=== PATIENT | male | born 1955 | race Caucasian/White ===

== ENCOUNTER → 2024-12-12 | Outpatient (CLI) | payer OTHER, SELFPAY ==
[2024-12-12 10:04] LABS: Collection Type, Urine Clean Catch; Squamous Epithelial Cell,Urine 0 /hpf (0-5)
[2024-12-12 10:33] LABS: Basophils # (Auto) 0.1 Thou/mm3 (0.0-0.2); Basophils % (Auto) 1 % (0-2.5); Eosinophils # (Auto) 0.2 Thou/mm3 (0.0-0.5); Eosinophils % (Auto) 3 % (0-10); Hematocrit 42.7 % (41.0-53.0); Hemoglobin 14.6 g/dL (13.5-16.0); Immature Granulocytes % (Auto) 1 % (0-0); Immature Granulocytes Auto 0.07 Thou/mm3 (0.00-0.00); Lymphocytes % (Auto) 31 % (10-50); Mean Corpuscular HGB Conc 34.2 g/dl (31.0-37.0); Mean Corpuscular Hemoglobin 31.7 pg (25.0-35.0); Mean Corpuscular Volume 93 fL (80-100); Monocytes # (Auto) 0.5 Thou/mm3 (0.0-0.8); Monocytes % (Auto) 7 % (0-12); Neutrophils # (Auto) 3.7 Thou/mm3 (1.8-7.7); Neutrophils % (Auto) 58 % (37-80); Nucleated Red Blood Cell % 0 /100 WBC (0); Platelet Count 162 Thou/mm3 (140-440); Red Blood Count 4.61 Miln/mm3 (4.50-5.90); White Blood Count 6.4 Thou/mm3 (3.8-10.6)
[2024-12-12 10:39] LABS: Glucose Estimated Average 137 mg/dL (80-131); Hemoglobin A1C 6.4 % Hgb (4.8-6.0)
[2024-12-12 10:50] LABS: Alanine Aminotransferase 28 U/L (10-49); Albumin, Serum 4.4 gm/dL (3.4-4.8); Albumin/Globulin Ratio 1.4 (1.2-2.2); Alkaline Phosphatase 60 U/L (46-116); Anion Gap 9 (7-16); Aspartate Amino Transferase 56 U/L (0-34); BUN/Creatinine Ratio 8 Ratio (12-20); Bilirubin,Total 0.4 mg/dL (0.3-1.2); Blood Urea Nitrogen 10 mg/dL (9-23); Calcium 9.1 mg/dL (8.3-10.6); Calcium (Corrected) 9.1 mg/dL (8.5-10.1); Carbon Dioxide 26.4 mMol/L (20.0-31.0); Cardiac Risk Estimate 8.1 RATIO (4.0-6.7); Chloride 105 mMol/L (98-107); Cholesterol 356 mg/dL (132-200); Creatinine (Component) 1.3 mg/dL (0.6-1.3); Globulin 3.1 gm/dL (2.3-3.5); Glucose 106 mg/dL (74-106); HDL Cholesterol 44 mg/dL (40-60); LDL Cholesterol,Calculated 258 mg/dL (0-130); Osmolality,Calculated 278 (275-295); Potassium 3.9 mMol/L (3.4-5.1); Sodium 140 mMol/L (136-145); Thyroid Stimulating Hormone > 150.00 uIU/mL (0.55-4.78); Total Protein 7.5 gm/dL (5.7-8.2); Triglycerides 271 mg/dL (30-150); eGFR > 60 See Note
[2024-12-12 10:56] LABS: Bilirubin,Urine Negative (Negative); Blood,Urine Negative (Negative); Clarity,Urine Clear (Clear/Hazy); Color,Urine Colorless (Lt Yel-Yel); Glucose, Urine Negative (Negative); Ketones,Urine Negative (Negative); Leukocyte Esterase,Urine Negative (Negative); Nitrite,Urine Negative (Negative); PH,Urine 6.5 (5.0-7.0); Protein,Urine Negative (Neg - Trace); RBC,Urine 2 /hpf (0-3); Specific Gravity,Urine 1.007 (1.001-1.035); Urobilinogen,Urine Negative mg/dL (0.0-1.0); WBC,Urine < 1 /hpf (0-5)
== END | disposition home or self-care (01) ==
LOC: COPL 09:17
PROVIDERS: PCP Family Medicine; Referring Provider Family Medicine; Visit Provider Family Medicine
DX: Z00.00 Encounter for general adult medical examination without abnormal findings (principal); E78.2 Mixed hyperlipidemia; E03.9 Hypothyroidism, unspecified
CPT/HCPCS: 36415; 80053; 80061; 81001; 83036; 84443; 85025

== ENCOUNTER 2025-02-15 16:16 | Emergency (ER) | payer OTHER, MEDICAID, SELFPAY ==
[2025-02-15 16:25] VITALS: BP 133/85; PULSE 74; RESP 20; TEMP 36.7; O2SAT 95; BMI 25.2
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
[2025-02-15 16:54] LABS: Basophils # (Auto) 0.1 Thou/mm3 (0.0-0.2); Basophils % (Auto) 1 % (0-2.5); Eosinophils # (Auto) 0.2 Thou/mm3 (0.0-0.5); Eosinophils % (Auto) 2 % (0-10); Hematocrit 42.4 % (41.0-53.0); Hemoglobin 14.5 g/dL (13.5-16.0); Immature Granulocytes Auto 0.06 Thou/mm3 (0.00-0.00); Lymphocytes # (Auto) 1.6 Thou/mm3 (1.0-4.8); Lymphocytes % (Auto) 18 % (10-50); Mean Corpuscular HGB Conc 34.2 g/dl (31.0-37.0); Mean Corpuscular Hemoglobin 31.8 pg (25.0-35.0); Mean Corpuscular Volume 93 fL (80-100); Monocytes # (Auto) 0.7 Thou/mm3 (0.0-0.8); Monocytes % (Auto) 7 % (0-12); Neutrophils # (Auto) 6.8 Thou/mm3 (1.8-7.7); Neutrophils % (Auto) 73 % (37-80); Nucleated Red Blood Cell # 0.00 Thou/mm3 (0.00-0.00); Nucleated Red Blood Cell % 0 /100 WBC (0); Platelet Count 247 Thou/mm3 (140-440); RDW Standard Deviation 44.6 fL (35.1-43.9); Red Blood Count 4.56 Miln/mm3 (4.50-5.90); White Blood Count 9.4 Thou/mm3 (3.8-10.6)
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
[2025-02-15 17:24] LABS: Alanine Aminotransferase 9 U/L (10-49); Albumin, Serum 4.6 gm/dL (3.4-4.8); Albumin/Globulin Ratio 1.4 (1.2-2.2); Alkaline Phosphatase 84 U/L (46-116); Anion Gap 8 (7-16); Aspartate Amino Transferase 17 U/L (0-34); BUN/Creatinine Ratio 11 Ratio (12-20); Bilirubin,Total 0.6 mg/dL (0.3-1.2); Blood Urea Nitrogen 12 mg/dL (9-23); Calcium 9.5 mg/dL (8.3-10.6); Calcium (Corrected) 9.5 mg/dL (8.5-10.1); Carbon Dioxide 26.1 mMol/L (20.0-31.0); Chloride 106 mMol/L (98-107); Creatinine (Component) 1.1 mg/dL (0.6-1.3); Estimated Creatinine Clearance 58.8 mL/min (>60); Globulin 3.4 gm/dL (2.3-3.5); Glucose 98 mg/dL (74-106); Lipase 34 U/L (12-53); Osmolality,Calculated 279 (275-295); Potassium 4.3 mMol/L (3.4-5.1); Sodium 140 mMol/L (136-145); Total Protein 8.0 gm/dL (5.7-8.2); eGFR > 60 See Note
[2025-02-15] MEDS: MAGNESIUM CITRATE 300 ML BTL PO (18:28)
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
[2025-02-15 18:42] VITALS: BP 161/90; PULSE 55; RESP 16; TEMP 36.6; O2SAT 95
[2025-02-15 19:34] VITALS: BP 140/93; PULSE 61; RESP 23; TEMP 36.6; O2SAT 94
[2025-02-15 20:15] VITALS: BP 125/89; PULSE 60; RESP 17; TEMP 36.8; O2SAT 95
[2025-02-15 20:30] LABS: Collection Type, Urine Clean Catch; Squamous Epithelial Cell,Urine 0 /hpf (0-5)
[2025-02-15 20:37] LABS: Bilirubin,Urine Negative (Negative); Blood,Urine Negative (Negative); Clarity,Urine Clear (Clear/Hazy); Color,Urine Lt-Yellow (Lt Yel-Yel); Culture Indicated,Urine Not Indicated; Glucose, Urine Negative (Negative); Ketones,Urine Negative (Negative); Leukocyte Esterase,Urine Negative (Negative); Nitrite,Urine Negative (Negative); PH,Urine 6.5 (5.0-7.0); Protein,Urine Negative (Neg - Trace); RBC,Urine 2 /hpf (0-3); Specific Gravity,Urine 1.043 (1.001-1.035); Urobilinogen,Urine Negative mg/dL (0.0-1.0); WBC,Urine 1 /hpf (0-5)
--- NOTE | 2025-02-15 20:44 | PC.NURSE ---
PT REFUSED THE ENEMA. PT WAS EDUCATED ON THE PURPOSE OF EDEMA. PROVIDER WAS NOTFIED ON REFUSAL
[2025-02-15 21:05] VITALS: BP 125/89; PULSE 65; RESP 21; TEMP 36.7; O2SAT 94
== END 2025-02-15 21:05 | disposition home or self-care (01) ==
PROVIDERS: Nurse Practitioner Primary Care; Emergency Provider Emergency Medicine; PCP Family Medicine
DX: K59.00 Constipation, unspecified (principal); I71.20 Thoracic aortic aneurysm, without rupture, unspecified; I71.40 Abdominal aortic aneurysm, without rupture, unspecified; K57.30 Diverticulosis of large intestine without perforation or abscess without bleeding
CPT/HCPCS: 36415; 74177; 80053; 81001; 83690; 85025; 99283; A4649; Q9967; A9270

== ENCOUNTER 2025-02-21 10:51 | Emergency (ER) | payer OTHER, MEDICAID, SELFPAY ==
[2025-02-21 11:04] VITALS: BP 155/91; PULSE 71; RESP 18; TEMP 36.9; O2SAT 98; BMI 24.2
--- NOTE | 2025-02-21 11:12 | EKG_ITS ---
[facility] Test Date: 2025-02-21 Pat Name: DHEERAJ RIVER Department: Room: - Gender: Male Director Of Development: : 1955 Requested By: Dheeraj Penn (LIZ) Order Number: [id number] Reading MD: Dheeraj Penn (CONTENT COORDINATOR) Measurements Intervals [place] Rate: 62 P: 73 CT: 160 QRS: 205 QRSD: 112 T: 81 QT: 425 QTc: 433 Interpretive Statements SINUS RHYTHM INDETERMINATE AXIS LOW QRS VOLTAGE IN EXTREMITY LEADS [QRS DEFLECTION < 0.5 mV IN LIMB LEADS] INFERIOR MYOCARDIAL INFARCTION , OF INDETERMINATE AGE [40+ ms Q WAVE AND/OR ST/T ABNORMALITY IN II/aVF] No previous ECG available for comparison /[id number]/[id number]
[2025-02-21 11:24] VITALS: PULSE 66
[2025-02-21 11:28] LABS: Basophils # (Auto) 0.0 Thou/mm3 (0.0-0.2); Basophils % (Auto) 0 % (0-2.5); Eosinophils # (Auto) 0.1 Thou/mm3 (0.0-0.5); Eosinophils % (Auto) 1 % (0-10); Hematocrit 43.0 % (41.0-53.0); Hemoglobin 14.6 g/dL (13.5-16.0); Immature Granulocytes Auto 0.03 Thou/mm3 (0.00-0.00); Lymphocytes # (Auto) 1.5 Thou/mm3 (1.0-4.8); Lymphocytes % (Auto) 20 % (10-50); Mean Corpuscular HGB Conc 34.0 g/dl (31.0-37.0); Mean Corpuscular Hemoglobin 31.2 pg (25.0-35.0); Mean Corpuscular Volume 92 fL (80-100); Monocytes # (Auto) 0.6 Thou/mm3 (0.0-0.8); Monocytes % (Auto) 8 % (0-12); Neutrophils # (Auto) 5.4 Thou/mm3 (1.8-7.7); Neutrophils % (Auto) 70 % (37-80); Nucleated Red Blood Cell # 0.00 Thou/mm3 (0.00-0.00); Nucleated Red Blood Cell % 0 /100 WBC (0); Platelet Count 233 Thou/mm3 (140-440); RDW Standard Deviation 44.6 fL (35.1-43.9); Red Blood Count 4.68 Miln/mm3 (4.50-5.90); White Blood Count 7.7 Thou/mm3 (3.8-10.6)
[2025-02-21 11:44] LABS: INR 1.0 (0.9-1.3); Partial Thromboplastin Time 28.4 Seconds (22.0-36.0); Prothrombin Time 11.2 Seconds (9.0-12.2)
[2025-02-21 12:02] LABS: Alanine Aminotransferase 8 U/L (10-49); Albumin, Serum 4.5 gm/dL (3.4-4.8); Albumin/Globulin Ratio 1.4 (1.2-2.2); Alkaline Phosphatase 82 U/L (46-116); Anion Gap 11 (7-16); Aspartate Amino Transferase 17 U/L (0-34); BUN/Creatinine Ratio 11 Ratio (12-20); Bilirubin,Total 0.8 mg/dL (0.3-1.2); Blood Urea Nitrogen 11 mg/dL (9-23); Calcium 9.5 mg/dL (8.3-10.6); Calcium (Corrected) 9.5 mg/dL (8.5-10.1); Carbon Dioxide 23.1 mMol/L (20.0-31.0); Chloride 106 mMol/L (98-107); Creatinine (Component) 1.0 mg/dL (0.6-1.3); Estimated Creatinine Clearance 64.7 mL/min (>60); Globulin 3.3 gm/dL (2.3-3.5); Glucose 86 mg/dL (74-106); Lipase 23 U/L (12-53); Magnesium 1.4 mg/dL (1.6-2.6); Osmolality,Calculated 277 (275-295); Potassium 3.9 mMol/L (3.4-5.1); Sodium 140 mMol/L (136-145); Total Protein 7.8 gm/dL (5.7-8.2); Troponin I < 0.020 ng/mL (0.0-0.045); eGFR > 60 See Note
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
[2025-02-21] MEDS: MORPHINE SULF INJ 10 MG/ML VIAL 4 MG IVP (13:00)
[2025-02-21] MEDS: Magnesium Sulfate 2 GM Ivpb 2 GM/50 ML BAG IV (13:01)
[2025-02-21 15:11] VITALS: PULSE 61; RESP 18; TEMP 37; O2SAT 95
== END 2025-02-21 15:54 | disposition home or self-care (01) ==
PROVIDERS: Nurse Practitioner Primary Care; Emergency Provider Student in an Organized Health Care Education/Training Program; PCP Family Medicine
DX: R10.9 Unspecified abdominal pain (principal); I25.2 Old myocardial infarction
CPT/HCPCS: 36415; 80053; 80307; 81001; 83690; 83735; 84484; 85025; 85610; 85730; 93005; 96365; 96366; 96375; 99283; J2270; J3475

== ENCOUNTER 2025-02-25 07:41 | Emergency (ER) | payer OTHER, MEDICAID, SELFPAY ==
[2025-02-25 07:42] VITALS: BMI 25.2
[2025-02-25 08:03] VITALS: BP 143/75; PULSE 68; RESP 18; TEMP 36.9; O2SAT 99
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
[2025-02-25] MEDS: HYDROcodone/APAP 5/325 TABLET 1 TAB PO (08:36)
[2025-02-25 08:39] LABS: Basophils # (Auto) 0.0 Thou/mm3 (0.0-0.2); Basophils % (Auto) 1 % (0-2.5); Eosinophils # (Auto) 0.1 Thou/mm3 (0.0-0.5); Eosinophils % (Auto) 2 % (0-10); Hematocrit 45.5 % (41.0-53.0); Hemoglobin 14.7 g/dL (13.5-16.0); Immature Granulocytes Auto 0.02 Thou/mm3 (0.00-0.00); Lymphocytes # (Auto) 1.4 Thou/mm3 (1.0-4.8); Lymphocytes % (Auto) 21 % (10-50); Mean Corpuscular HGB Conc 32.3 g/dl (31.0-37.0); Mean Corpuscular Hemoglobin 31.3 pg (25.0-35.0); Mean Corpuscular Volume 97 fL (80-100); Monocytes # (Auto) 0.6 Thou/mm3 (0.0-0.8); Monocytes % (Auto) 8 % (0-12); Neutrophils # (Auto) 4.6 Thou/mm3 (1.8-7.7); Neutrophils % (Auto) 68 % (37-80); Nucleated Red Blood Cell # 0.00 Thou/mm3 (0.00-0.00); Nucleated Red Blood Cell % 0 /100 WBC (0); Platelet Count 237 Thou/mm3 (140-440); RDW Standard Deviation 46.3 fL (35.1-43.9); Red Blood Count 4.69 Miln/mm3 (4.50-5.90); White Blood Count 6.7 Thou/mm3 (3.8-10.6)
[2025-02-25 09:40] LABS: Alanine Aminotransferase 9 U/L (10-49); Albumin, Serum 4.5 gm/dL (3.4-4.8); Albumin/Globulin Ratio 1.4 (1.2-2.2); Alkaline Phosphatase 76 U/L (46-116); Anion Gap 9 (7-16); Aspartate Amino Transferase 17 U/L (0-34); BUN/Creatinine Ratio 11 Ratio (12-20); Bilirubin,Total 0.3 mg/dL (0.3-1.2); Blood Urea Nitrogen 11 mg/dL (9-23); Calcium 9.9 mg/dL (8.3-10.6); Calcium (Corrected) 9.9 mg/dL (8.5-10.1); Carbon Dioxide 26.8 mMol/L (20.0-31.0); Chloride 106 mMol/L (98-107); Creatinine (Component) 1.0 mg/dL (0.6-1.3); Estimated Creatinine Clearance 64.7 mL/min (>60); Globulin 3.3 gm/dL (2.3-3.5); Glucose 103 mg/dL (74-106); Lipase 25 U/L (12-53); Osmolality,Calculated 282 (275-295); Potassium 3.9 mMol/L (3.4-5.1); Sodium 142 mMol/L (136-145); Total Protein 7.8 gm/dL (5.7-8.2); eGFR > 60 See Note
[2025-02-25 09:49] LABS: Magnesium 1.4 mg/dL (1.6-2.6)
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
[2025-02-25 11:03] VITALS: BP 140/85; PULSE 55; RESP 18; TEMP 36.8; O2SAT 96
== END 2025-02-25 11:28 | disposition home or self-care (01) ==
PROVIDERS: Nurse Practitioner Family; Emergency Provider Emergency Medicine; PCP Family Medicine
DX: R10.32 Left lower quadrant pain (principal); K59.00 Constipation, unspecified; N28.1 Cyst of kidney, acquired; I71.40 Abdominal aortic aneurysm, without rupture, unspecified
CPT/HCPCS: 36415; 74177; 80053; 81001; 83690; 83735; 85025; 87086; 99283; A4649; Q9967; A9270

== ENCOUNTER → 2025-03-20 | Outpatient (CLI) | payer OTHER, MEDICAID, SELFPAY ==
[2025-03-20 09:25] LABS: Basophils # (Auto) 0.0 Thou/mm3 (0.0-0.2); Basophils % (Auto) 1 % (0-2.5); Eosinophils # (Auto) 0.2 Thou/mm3 (0.0-0.5); Eosinophils % (Auto) 3 % (0-10); Hematocrit 45.1 % (41.0-53.0); Hemoglobin 14.7 g/dL (13.5-16.0); Immature Granulocytes Auto 0.05 Thou/mm3 (0.00-0.00); Lymphocytes # (Auto) 1.6 Thou/mm3 (1.0-4.8); Lymphocytes % (Auto) 24 % (10-50); Mean Corpuscular HGB Conc 32.6 g/dl (31.0-37.0); Mean Corpuscular Hemoglobin 31.0 pg (25.0-35.0); Mean Corpuscular Volume 95 fL (80-100); Monocytes # (Auto) 0.6 Thou/mm3 (0.0-0.8); Monocytes % (Auto) 9 % (0-12); Neutrophils # (Auto) 4.3 Thou/mm3 (1.8-7.7); Neutrophils % (Auto) 64 % (37-80); Nucleated Red Blood Cell # 0.00 Thou/mm3 (0.00-0.00); Nucleated Red Blood Cell % 0 /100 WBC (0); Platelet Count 259 Thou/mm3 (140-440); RDW Standard Deviation 45.5 fL (35.1-43.9); Red Blood Count 4.74 Miln/mm3 (4.50-5.90); White Blood Count 6.8 Thou/mm3 (3.8-10.6)
[2025-03-20 09:31] LABS: Glucose Estimated Average 128 mg/dL (80-131); Hemoglobin A1C 6.1 % Hgb (4.8-6.0)
[2025-03-20 10:11] LABS: Alanine Aminotransferase 10 U/L (10-49); Albumin, Serum 4.4 gm/dL (3.4-4.8); Albumin/Globulin Ratio 1.5 (1.2-2.2); Alkaline Phosphatase 84 U/L (46-116); Anion Gap 10 (7-16); Aspartate Amino Transferase 19 U/L (0-34); BUN/Creatinine Ratio 13 Ratio (12-20); Bilirubin,Total 0.2 mg/dL (0.3-1.2); Blood Urea Nitrogen 14 mg/dL (9-23); Calcium 9.3 mg/dL (8.3-10.6); Calcium (Corrected) 9.3 mg/dL (8.5-10.1); Carbon Dioxide 27.2 mMol/L (20.0-31.0); Cardiac Risk Estimate 4.5 RATIO (4.0-6.7); Chloride 105 mMol/L (98-107); Cholesterol 148 mg/dL (132-200); Creatinine (Component) 1.1 mg/dL (0.6-1.3); Globulin 3.0 gm/dL (2.3-3.5); Glucose 118 mg/dL (74-106); HDL Cholesterol 33 mg/dL (40-60); LDL Cholesterol,Calculated 95 mg/dL (0-130); Osmolality,Calculated 284 (275-295); Potassium 4.0 mMol/L (3.4-5.1); Sodium 142 mMol/L (136-145); Thyroid Stimulating Hormone 1.62 uIU/mL (0.55-4.78); Total Protein 7.4 gm/dL (5.7-8.2); Triglycerides 102 mg/dL (30-150); eGFR > 60 See Note
== END | disposition home or self-care (01) ==
LOC: COPL 08:46
PROVIDERS: PCP Family Medicine; Referring Provider Family Medicine; Visit Provider Family Medicine
DX: E03.9 Hypothyroidism, unspecified (principal); E78.2 Mixed hyperlipidemia; R73.03 Prediabetes; I10 Essential (primary) hypertension
CPT/HCPCS: 36415; 80053; 80061; 83036; 84443; 85025

== ENCOUNTER → 2025-03-23 | Outpatient (CLI) | payer OTHER, MEDICAID, SELFPAY ==
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
== END | disposition home or self-care (01) ==
LOC: CCTX 15:26
PROVIDERS: Referring Provider Student in an Organized Health Care Education/Training Program; Visit Provider Student in an Organized Health Care Education/Training Program
DX: R91.1 Solitary pulmonary nodule (principal); N28.89 Other specified disorders of kidney and ureter
CPT/HCPCS: 71275; A4649; Q9967

== ENCOUNTER 2025-06-06 00:46 | Inpatient (IN) | payer OTHER, MEDICAID, MEDICARE, SELFPAY ==
[2025-06-06] VITALS (32 sets, daily range): BP systolic 105–168; BP diastolic 53–92; PULSE 64–113; RESP 12–42; TEMP 36.3–37.2; O2SAT 15–100; BMI 26.6; BMI 25.7
--- NOTE | 2025-06-06 00:46 | PC.NURSE ---
BIBA from home for SOB, started 30 min prior to EMS arrival. Initial O2 88%, recently had surgery for annuerism, HO COPD, NKA, decreased bilateral breath sounds, no relief after 2 albuterol tx
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
--- NOTE | 2025-06-06 01:02 | XR_ITS ---
EXAMINATION: AP chest single view TECHNIQUE: AP portable upright chest single view Date and time: June 06, 2025, 0105 hours, comparison 04/21/2024 INDICATIONS: Shortness of breath today FINDINGS: Partial visualization descending thoracic aorta stent Scarring versus atelectasis at the lung bases Normal heart size Ectatic thoracic aorta Reverse left shoulder arthroplasty Small opacities overlying the right shoulder Severe osteopenia IMPRESSION: Bibasilar scarring versus atelectasis, clinical correlation advised
[2025-06-06] MEDS: SODIUM CHLORIDE RT SOL 0.9% 3 ML NEBU INH (01:35)
[2025-06-06] MEDS: DEXAMETHASONE SOD PHOS INJ 10 MG/ML VIAL IV (01:36)
[2025-06-06] MEDS: ALBUTEROL RT 2.5 MG/0.5 ML NEBU 10 MG INH (01:36)
[2025-06-06 01:41] LABS: Basophils # (Auto) 0.1 Thou/mm3 (0.0-0.2); Basophils % (Auto) 0 % (0-2.5); Eosinophils # (Auto) 0.2 Thou/mm3 (0.0-0.5); Eosinophils % (Auto) 1 % (0-10); Immature Granulocytes Auto 0.84 Thou/mm3 (0.00-0.00); Lymphocytes # (Auto) 3.3 Thou/mm3 (1.0-4.8); Lymphocytes % (Auto) 18 % (10-50); Mean Corpuscular HGB Conc 30.3 g/dl (31.0-37.0); Mean Corpuscular Hemoglobin 29.8 pg (25.0-35.0); Mean Corpuscular Volume 98 fL (80-100); Monocytes # (Auto) 1.1 Thou/mm3 (0.0-0.8); Monocytes % (Auto) 6 % (0-12); Neutrophils # (Auto) 13.2 Thou/mm3 (1.8-7.7); Neutrophils % (Auto) 71 % (37-80); Nucleated Red Blood Cell # 0.29 Thou/mm3 (0.00-0.00); Nucleated Red Blood Cell % 2 /100 WBC (0); Platelet Count 591 Thou/mm3 (140-440); RDW Standard Deviation 53.4 fL (35.1-43.9); Red Blood Count 2.05 Miln/mm3 (4.50-5.90); White Blood Count 18.7 Thou/mm3 (3.8-10.6)
[2025-06-06] MEDS: SODIUM CHLORIDE 0.9% 1000 ML 1,000 ML 100 ML IV (01:47)
[2025-06-06 01:50] LABS: D-Dimer 2820 ng/mL (<600)
[2025-06-06] MEDS: SODIUM CHLORIDE 0.9% 500 ML 500 ML IV (01:50)
[2025-06-06 01:52] LABS: Hematocrit 20.1 % (41.0-53.0); Hemoglobin 6.1 g/dL (13.5-16.0)
[2025-06-06 02:02] LABS: Alanine Aminotransferase 11 U/L (10-49); Albumin, Serum 3.8 gm/dL (3.4-4.8); Albumin/Globulin Ratio 1.7 (1.2-2.2); Alkaline Phosphatase 70 U/L (46-116); Aspartate Amino Transferase 17 U/L (0-34); BUN/Creatinine Ratio 16 Ratio (12-20); Bilirubin,Total < 0.2 mg/dL (0.3-1.2); Blood Urea Nitrogen 28 mg/dL (9-23); Calcium 9.5 mg/dL (8.3-10.6); Calcium (Corrected) 9.7 mg/dL (8.5-10.1); Chloride 101 mMol/L (98-107); Creatinine (Component) 1.7 mg/dL (0.6-1.3); Estimated Creatinine Clearance 36.7 mL/min (>60); Globulin 2.2 gm/dL (2.3-3.5); Glucose 285 mg/dL (74-106); Magnesium 2.4 mg/dL (1.6-2.6); Osmolality,Calculated 293 (275-295); Potassium 3.6 mMol/L (3.4-5.1); Sodium 139 mMol/L (136-145); Total Protein 6.0 gm/dL (5.7-8.2); Troponin I < 0.020 ng/mL (0.0-0.045); eGFR 44 See Note
[2025-06-06 02:04] LABS: Anion Gap 23 (7-16); Carbon Dioxide 15.0 mMol/L (20.0-31.0)
--- NOTE | 2025-06-06 02:09 | XR_ITS ---
Examination: CTA chest, with intravenous contrast. CTA abdomen, with intravenous contrast. CTA pelvis, with intravenous contrast. 2-D sagittal and coronal reconstructions. 3-D reconstructions. Date and time of exam: June 06, 2025, 0437 hours, comparison March 23, 2025 INDICATIONS: History pulmonary artery hypertension, ulcerations of the wall of the descending thoracic aorta on CT chest March 23, 2025, current shortness of breath clinical diagnosis pulmonary embolus, recent stent placement CTDI vol (mgy) 8.36 DLP (MGycm) 608 Technique: Multiple CTA images, 2.0 mm slice thickness, obtained chest, abdomen, pelvis, with the high-resolution 64 slice scanner. 50 cc Isovue-300 is administered intravenously. Sagittal and coronal 2-D reconstructions are obtained. 3-D reconstructions, angiographic images are obtained. 3-D postprocessing, including vascular maximum intensity projections. Low dose protocols were performed. One or more of the following dose reduction techniques were used; automated exposure control, adjustment of the mA and/or KV according to patient size, use of iterative reconstruction technique. Findings: Interval placement descending thoracic aortic stent which is opacified, no dissection Trace pericardial effusion Pulmonary artery opacification is poor, bolus contrast timing error COPD with scarring and bullous change in the lower lung zones The descending thoracic aortic stent extends into the abdominal aorta with stents involving the renal arteries superior mesenteric and celiac axes Aortoiliac endoluminal stent which is opacified, AP dimension infrarenal abdominal aorta 5.4 cm No infarct involving the liver spleen or kidneys, multiple splenic cysts Prominent osteopenia IMPRESSION: Interval extensive thoracic and abdominal aortic stents which are patent AP dimension infrarenal abdominal aorta 5.4 cm Pulmonary artery opacification is suboptimal for exclusion of pulmonary artery emboli
[2025-06-06 02:12] LABS: B-Type Natriuretic Peptide 99 pg/mL (0-100)
[2025-06-06 02:55] LABS: Allen Test Performed/OK; Base Excess -4 (-3-3); HCO3 21 mEq/L (20-26); Inspired Oxygen, FIO2 100 %; O2 Saturation 100 % (91-98); PCO2 35 mmHg (32.0-48.0); PO2 128 mmHg (83-108); Puncture Site Right Radial; pH, Arterial 7.39 (7.35-7.45)
[2025-06-06 03:10] LABS: Path Review Blood Smear Sent to Pathologist
--- NOTE | 2025-06-06 05:36 | PRELIM_ITS ---
CT angiogram of the chest, abdomen and pelvis with intravenous contrast (axial sections with sagittal and coronal reformats) June 06, 2025 at 0437 hours Clinical History: Rule out pulmonary thromboembolism. Comparison: No prior study is available for comparison. Findings: There are atheromatous calcification in the thoracic and abdominal aorta with evidence of postsurgical repair of the descending thoracic and abdominal aortic aneurysm.No active leakage. The origins of the right brachiocephalic, left common carotid and left subclavian arteries are patent. The celiac, superior mesenteric, inferior mesenteric and bilateral renal arteries are patent to the extent visualized. The common iliac, external iliac and internal iliac arteries are patent bilaterally. No central pulmonary thromboembolism .The evaluation of the remainder pulmonary artery divisions is limited due to a suboptimal bolus of contrast. There are few prominent mediastinal lymph nodes. There is no pericardial effusion. A small hiatal hernia is present. Moderate emphysematous changes predominantly in bilateral lower lobes. Bibasilar streaky atelectasis is present. No evidence of pleural effusion or pneumothorax. There are multiple cysts in bilateral kidneys, the largest in the right kidney measuring 9 cm with calcifications. The liver, gallbladder, spleen, pancreas, adrenals are unremarkable. No evidence of bowel obstruction. The appendix is within normal limits (images [id number]). Fluid-filled small and large bowel loops with air-fluid levels are seen in the colon. The urinary bladder is unremarkable. There is mild prostatomegaly. There is no free fluid, free air or abscess. There are small fat-containing bilateral inguinal hernias. Degenerative changes are identified in the spine. Impression: 1. No evidence of aortic dissection.Postsurgical repair of aortic aneurysm as described. 2. No central pulmonary thromboembolism .The evaluation of the remainder pulmonary artery divisions is limited due to a suboptimal bolus of contrast.Fluid-filled small and large bowel loops with air-fluid levels in the colon, nonspecific. However, in the appropriate clinical setting the possibility of enterocolitis cannot be excluded. 3. Other findings as described above. Report Electronically Signed By: Amrit Bravo 06/06/2025 5:35:47 AM [EST]
[2025-06-06] MEDS: ALBUTEROL/IPRATROPIUM (Duoneb) RT SOL 3 ML NEBU INH ×5 (06:20→22:19)
[2025-06-06] MEDS: metroNIDAZOLE/NS 500 MG IVPB 500 MG/100 ML BAG 100 MG IV (06:52)
[2025-06-06] MEDS: AZITHROMYCIN INJ 250 MG, Sterile Water 2.5 ML in SODIUM CHLORIDE 0.9% 250 ML 250 ML 252.5 MG IV (08:16)
[2025-06-06 08:37] LABS: Lactate (Lactic Acid) 2.8 mMol/L (0.4-2.0)
[2025-06-06] MEDS: INSULIN LISPRO (AdmeLOG) 1 UNIT/0.01 ML UNIT SC (09:05)
[2025-06-06 09:06] LABS: Albumin, Serum 3.8 gm/dL (3.4-4.8); Anion Gap 13 (7-16); BUN/Creatinine Ratio 25 Ratio (12-20); Blood Urea Nitrogen 32 mg/dL (9-23); Calcium 8.7 mg/dL (8.3-10.6); Calcium (Corrected) 8.9 mg/dL (8.5-10.1); Carbon Dioxide 20.8 mMol/L (20.0-31.0); Chloride 106 mMol/L (98-107); Creatinine (Component) 1.3 mg/dL (0.6-1.3); Estimated Creatinine Clearance 48.0 mL/min (>60); Glucose 206 mg/dL (74-106); Osmolality,Calculated 292 (275-295); Phosphorous 3.5 mg/dL (2.4-5.1); Potassium 4.6 mMol/L (3.4-5.1); Sodium 140 mMol/L (136-145); Troponin I 0.031 ng/mL (0.0-0.045); eGFR > 60 See Note
[2025-06-06 09:36] LABS: Collection Type, Urine Clean Catch
[2025-06-06 10:01] LABS: Amphetamine/Methamp Scrn,U Negative (Negative); Barbiturate Screen,Urine Negative (Negative); Benzodiazepines Screen,Urine Negative (Negative); Benzoylecgonine Screen, Ur Negative (Negative); Fentanyl Screen,Urine Negative (Negative); Opiate Screen,Urine Negative (Negative); THC Screen,Urine Positive (Negative)
[2025-06-06 10:02] LABS: Bacteria,Urine Rare; Bilirubin,Urine Negative (Negative); Blood,Urine Negative (Negative); Clarity,Urine Clear (Clear/Hazy); Color,Urine Lt-Yellow (Lt Yel-Yel); Culture Indicated,Urine Not Indicated; Glucose, Urine Negative (Negative); Ketones,Urine Negative (Negative); Leukocyte Esterase,Urine Negative (Negative); Nitrite,Urine Negative (Negative); PH,Urine 6.0 (5.0-7.0); Protein,Urine Trace (Neg - Trace); RBC,Urine 3 /hpf (0-3); Specific Gravity,Urine 1.030 (1.001-1.035); Squamous Epithelial Cell,Urine < 1 /hpf (0-5); Urobilinogen,Urine Negative mg/dL (0.0-1.0); WBC,Urine 2 /hpf (0-5)
[2025-06-06] MEDS: cefTRIAXone/D5w 1gm IV premix 1 GM/50 ML BAG IV (10:04)
--- NOTE | 2025-06-06 11:12 | PC.NURSE ---
report given to edwin
[2025-06-06 11:36] LABS: Reflex Lactate? Y
--- NOTE | 2025-06-06 11:47 | ESCONSULT_ITS ---
HPI Data of Consult Requesting Physician: Sidra Pulido DO Admitting Provider: Sidra Pulido DO Attending Provider: Sidra Pulido DO Primary Care Provider: Physician No Primary/Family Consult Narrative Reason for consult: Acute Anemia History of present illness: HPI: A 69-year-old male patient with past medical history of COPD not on oxygen, remote history of heroin abuse, meth abuse, cocaine abuse, alcohol abuse, aortic aneurysm status post stent placement in May [address] Barnes in [place], hypertension, hyperlipidemia, hypothyroidism came to the ED after he noticed severe generalized weakness for the past few days. He reported that after he was discharged he was doing fairly well however in the last few days he became very weak and has to stop while he was walking around the house. Patient reported that he has been experiencing some abdominal distention and bloating. He reported multiple episodes of black tarry stool and she was using [place]- [place] to help with the bloating. On questioning he denied using any ibuprofen because it made him having stomach upset. Patient denied any hematemesis or fresh blood per rectum except the black tarry stool. Patient reported that he has never had any EGD or colonoscopy in the past however he mentioned that he was using IV street drugs in the past. Patient reported palms and feet itching denied any jaundice. On review of other system patient denied any urinary tract issues, weight loss or weight gain, dizziness or focal neurological deficit, denied any palpitation, chest pain, or lower extremity swelling. Her medication include acetaminophen, albuterol inhaler as needed, aspirin, levothyroxine 75 mcg, losartan 100 mg, GoLytely was prescribed for his constipation, and rosuvastatin 20 mg. PMH: As above Social hx: Alcohol: History of alcohol use disorder for 50 years, currently sober Tobacco: 1 to 2 packs a day for 50 years Illicit drugs: Remote history of heroin use disorder, meth abuse, cocaine abuse, and current marijuana use. Allergies: No known allergies cc:: cc: Sidra Pulido DO Review of Systems Review of Systems Systems Reviewed: All systems reviewed, normal except as documented Exam Vital Signs Temp Pulse Resp BP Pulse Ox O2 Del Method O2 Flow Rate 97.4 F 67 17 165/78 H 100 Nasal Cannula 3 06/06/25 08:32 06/06/25 10:45 06/06/25 10:45 06/06/25 10:21 06/06/25 10:45 06/06/25 10:21 06/06/25 10:45 FiO2 30 06/06/25 01:25 Narrative Exam GEN: AOx3, able to speak full sentences HEENT: NC/AC, oral mucosa dry, neck supple CVS: RRR, S1-S2 present, no murmurs appreciated RESP: CTAB GI: soft, Mildly distended, non tender, NBS MSK: able to move all 4 limbs, no lower extremity edema SKIN: warm and dry [employer]: CN II-XII and Sensation grossly intact. Results Labs 06/06/25 11:49 06/06/25 08:34 Labs: Short CBC 06/06/25 Range/Units 01:17 WBC 18.7 H (3.8-10.6) Thou/mm3 Hgb 6.1 L* (13.5-16.0) g/dL Hct 20.1 L* (41.0-53.0) % Plt Count 591 H (140-440) Thou/mm3 BMP 06/06/25 06/06/25 01:17 08:34 Sodium 139 140 Potassium 3.6 4.6 D Chloride 101 106 Carbon Dioxide 15.0 L 20.8 BUN 28 H 32 H Creatinine 1.7 H 1.3 Glucose 285 H 206 H D Calcium 9.5 8.7 Cardiac Enzymes 06/06/25 06/06/25 Range/Units 01:17 08:34 Troponin I < 0.020 0.031 (0.0-0.045) ng/mL Liver Function 06/06/25 06/06/25 Range/Units 01:17 08:34 Total Bilirubin < 0.2 L (0.3-1.2) mg/dL AST 17 (0-34) U/L ALT 11 (10-49) U/L Alkaline Phosphatase 70 (46-116) U/L Albumin 3.8 3.8 (3.4-4.8) gm/dL Urine 06/06/25 Range/Units 09:15 Urine Color Lt-Yellow (Lt Yel-Yel) Urine Clarity Clear (Clear/Hazy) Urine pH 6.0 (5.0-7.0) Ur Specific [place] 1.030 (1.001-1.035) Urine Protein Trace (Neg - Trace) Urine Glucose (UA) Negative (Negative) ABG Interpretation ABG results: 06/06/25 02:41 ABG pH 7.39 ABG pCO2 35 ABG pO2 128 H ABG HCO3 21 ABG O2 Saturation 100 H ABG Base Excess -4 L Quality Measures Quality Measures none Advance care planning discussed with:: patient Medications Home Medications and Allergies Home Medications ?Medication ?Instructions ?Recorded ?Confirmed ?Type acetaminophen 500 mg tablet 500 mg PO Q8HR PRN pain 06/06/25 History albuterol sulfate 90 mcg/actuation 2 puff inhalation Q 6H PRN 06/06/25 06/06/25 History aerosol inhaler shortness of breath or wheez ing aspirin 81 mg chewable tablet 1 tab PO QDAY 06/06/25 1 History levothyroxine 75 mcg tablet 75 mcg PO QDAY 06/06/25 History (Synthroid) losartan 100 mg tablet 100 mg PO QDAY 06/06/25 10/05/03 History rosuvastatin 20 mg tablet 20 mg PO QDAY 06/06/2506/06 History Allergies Allergy/AdvReac Type Severity Reaction Status Date / Time No Known Allergies Allergy Verified 05/05/25 10:24 Visit Medications Acetaminophen (Acetaminophen 325 Mg Tablet) 650 mg PO Q6H PRN PRN Reason: PAIN 1-3 OR FEVER > 101 Stop: 07/06/25 07:56 Albuterol/Ipratropium (Albuterol/Ipratropium (Duoneb) Rt Linda 3 Ml Nebu) 3 ml INH Q4HRRT DONTA Stop: 07/06/25 06:59 Last Admin: 06/06/25 10:43 Dose: 3 ml Dextrose (Dextrose 50%-Water Inj 50 Ml Syringe) 25 ml IV Q15MIN PRN PRN Reason: BG 50-70 responsive npo pt Stop: 07/06/25 07:58 Dextrose (Dextrose 50%-Water Inj 50 Ml Syringe) 50 ml IV Q15MIN PRN PRN Reason: BG <50 OR BG <70 & pt unresponsive Stop: 07/06/25 07:58 Glucagon (Glucagon Inj 1 Mg Vial) 1 mg IM Q15MIN PRN PRN Reason: BG <70, and no IV access Insulin Human Lispro (Insulin Lispro (Admelog) 1 Unit/0.01 Ml Unit) 0 unit SC Q6HR DONTA; Protocol Stop: 07/06/25 11:59 Ondansetron HCl (Ondansetron Inj 2 Mg/Ml Inj 2 Ml) 4 mg IV Q6H PRN; Protocol PRN Reason: NAUSEA OR VOMITING Stop: 07/06/25 07:56 Pantoprazole Sodium (Pantoprazole Inj 40 Mg Vial) 40 mg IVP BID [facility] Stop: 07/06/25 20:59 Pharmacy Consult (Pharmacy Renal Dose Adjustment 1 Ea) 1 each XX PRN PRN PRN Reason: CONSULT Stop: 07/06/25 08:06 Sennosides (Senna Tablet) 2 tab PO BID PRN; Protocol PRN Reason: CONSTIPATION Stop: 07/06/25 07:56 Sodium Chloride (Sodium Chloride Rt Linda 0.9% 3 Ml Nebu) 3 ml INH PRN PRN PRN Reason: SOLN Stop: 07/06/25 01:01 Last Admin: 06/06/25 01:35 Dose: 3 ml Discontinued Medications Albuterol (Albuterol Rt 2.5 Mg/0.5 Ml Nebu) 10 mg INH X1 ONE Stop: 06/06/25 01:03 Last Admin: 06/06/25 01:36 Dose: 10 mg Albuterol/Ipratropium (Albuterol/Ipratropium (Duoneb) Rt Linda 3 Ml Nebu) 3 ml INH Q4HRRT [facility] Stop: 07/06/25 02:59 Last Admin: 06/06/25 05:43 Dose: Not Given Dexamethasone Sodium Phosphate (Dexamethasone Sod Phos Inj 10 Mg/Ml Vial) 10 mg IV X1 ONE Stop: 06/06/25 01:03 Last Admin: 06/06/25 01:36 Dose: 10 mg Sodium Chloride (Ns) 500 mls @ 500 mls/hr IV .Q1H ONE Stop: 06/06/25 02:01 Last Infusion: 06/06/25 02:50 Dose: Infused Sodium Chloride (Ns) 1,000 mls @ 100 mls/hr IV .Q10H ONE Stop: 06/06/25 11:01 Last Admin: 06/06/25 01:47 Dose: 100 mls/hr Azithromycin 250 mg/ Sterile (Water 2.5 ml/ Sodium Chloride) 252.5 mls @ 252.5 mls/hr IV QDAY [facility] Stop: 06/14/25 08:59 Azithromycin 250 mg/ Sterile (Water 2.5 ml/ Sodium Chloride) 252.5 mls @ 252.5 mls/hr IV X1 ONE Stop: 06/06/25 06:59 Last Admin: 06/06/25 10:21 Dose: Not Given Metronidazole (Flagyl 500 Mg Iv) 500 mg in 100 mls @ 100 mls/hr IV X1 ONE Stop: 06/06/25 07:01 Last Infusion: 06/06/25 07:27 Dose: 0 mls/hr Azithromycin 250 mg/ Sterile (Water 2.5 ml/ Sodium Chloride) 252.5 mls @ 252.5 mls/hr IV X1 ONE Stop: 06/06/25 07:29 Last Infusion: 06/06/25 09:20 Dose: Infused Ceftriaxone Sodium/Dextrose (Rocephin/D5w 1gm Iv Premix) 1 gm in 50 mls @ 100 mls/hr IV QDAY [facility] Stop: 06/13/25 08:59 Last Admin: 06/06/25 10:04 Dose: 100 mls/hr Azithromycin 500 mg/ Sodium (Chloride) 250 mls @ 250 mls/hr IV QDAY [facility] Stop: 06/13/25 11:05 Last Admin: 06/06/25 11:37 Dose: Not Given Azithromycin 250 mg/ Sterile (Water 2.5 ml/ Sodium Chloride) 252.5 mls @ 252.5 mls/hr IV X1 ONE Stop: 06/06/25 12:06 Last Admin: 06/06/25 11:37 Dose: Not Given Azithromycin 500 mg/ Sodium (Chloride) 250 mls @ 250 mls/hr IV QDAY [facility] Stop: 06/14/25 08:59 Insulin Human Lispro (Insulin Lispro (Admelog) 1 Unit/0.01 Ml Unit) 0 unit SC Q6H [facility]; Protocol Stop: 07/06/25 07:59 Last Admin: 06/06/25 09:05 Dose: 1 unit Methylprednisolone Sodium Succinate (Methylprednisolone Sod Succ 40 Mg/Ml Vial) 40 mg IVP QDAY [facility] Stop: 06/13/25 08:59 Last Admin: 06/06/25 08:13 Dose: 40 mg Pantoprazole Sodium (Pantoprazole Inj 40 Mg Vial) 40 mg IVP X1 ONE Stop: 06/06/25 08:00 Last Admin: 06/06/25 08:11 Dose: 40 mg Assessment & Plan Plan Summary: A 69-year-old male patient with past medical history of COPD not on oxygen, remote history of heroin abuse, meth abuse, cocaine abuse, alcohol abuse, aortic aneurysm status post stent placement in May [address] Barnes in [place], hypertension, hyperlipidemia, hypothyroidism came to the ED after he noticed severe generalized weakness for the past few days. Patient was admitted for GI bleed workup. Assessment and plan #GI bleed most likely upper versus less likely lower #History of IV drug use Patient presented with generalized weakness and black tarry stool, blood pressure was 105/65, found to have hemoglobin level of 6.9, last hemoglobin in black tarry stool [place] was 14.7 received 2 units of PRBCs at the ED, WBCs 18.7, platelets 591, patient was found also to have elevated serum creatinine from his baseline 1.1-1.7 which downtrended to 1.3 with fluid resuscitation and blood transfusion. Patient reported that he has aneurysm endovascular repair was done, he was supposed to see his vascular surgeon on , 07 June 2025 however he came to the hospital because of the symptoms. Primary team called the endovascular surgeon Dr. Barnes in [place] was updated about the CT scan finding and which she informed the aneurysmal enlargement to 5.4 does not indicate any failure and it is within normal range after the procedure. Patient reported that he once tried to take ibuprofen in the past however it made him having stomach upset. Plan ? Chronic hepatitis panel was ordered ? Keep hemoglobin level above 7, repeat H&H posttransfusion ? Keep the patient on pantoprazole 40 mg IV twice daily ? Keep patient n.p.o. for EGD today ? Fecal occult blood test was ordered by the primary team, follow-up on the results. ? Liver ultrasound, if positive for cirrhosis you can start the patient on octreotide drip, and order non?AFP test #Prediabetes A1c of 6.1 #History of COPD not on oxygen #History of drug abuse including IV drug use #History of aortic aneurysm status post stent placement in May 2025 #History of hypothyroidism Plan ? Follow primary team recommendations Thank you for your consultation, please do not hesitate to reach out if you have any question or concern - Patient's plan and care discussed with my attending, Dr. Sancho Soni MD Internal Medicine PGY-3 Attending Provider Attestation/Addendum Patient evaluated and personally examined by me Presented with weakness and melanotic stools Consent obtained for fiberoptic esophagogastroduodenoscopy with possible biopsy possible therapeutic intervention under intravenous moderate sedation Case discussed with the internal medicine resident as well as the ER physician and the ER residents and care plan outlined IV Protonix Serial CBC Will follow the patient Thank you very much for the opportunity to participate in care of this patient
[2025-06-06 11:57] LABS: Hematocrit 28.0 % (41.0-53.0); Hemoglobin 9.2 g/dL (13.5-16.0)
--- NOTE | 2025-06-06 12:11 | XR_ITS ---
Examination: Abdomen sonogram, Limited Date and time of exam: June 06, 2025, 1230 hours INDICATIONS: Abdominal discomfort 5 months Technique: Real-time willingham scale transabdominal sonographic images of the upper abdomen obtained. Findings: Normal gallbladder Normal common bile duct 0.5 cm Pancreas obscured by bowel gas Right kidney 12.1 cm irregular contour fatty infiltration No focal liver lesions Incidental note multiple right renal cysts, the largest 6.3 x 8.7 cm Normal hepatopetal portal venous flow Patent IVC IMPRESSION: Normal gallbladder Cirrhosis versus primary parasellar disease
[2025-06-06 13:06] LABS: Lactic Acid, 3 HR 2.5 mMol/L (0.4-2.0)
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
[2025-06-06 14:12] LABS: Hepatitis B Core Antibody IgM Non Reactive (Non React); Hepatitis B Surface Ab Reactive (Immune) (Immune); Hepatitis B Surface Antigen Non Reactive (Non React); Hepatitis C Antibody Reactive (Non React)
--- NOTE | 2025-06-06 14:44 | PC.SS ---
This [employer] promotions intern attempted to make contact with patient for initial assessment, patient was no longer in ER was informed by UC patient was admitted to different floor.
[2025-06-06] MEDS: OCTREOTIDE ACET INJ 1,000 MCG in SODIUM CHLORIDE 0.9% 100 ML 5.1 MCG IV (14:59)
[2025-06-06 18:25] LABS: AFP Non-Pregnant 1.50 ng/mL (<8.10)
--- NOTE | 2025-06-06 20:35 | PC.NURSE ---
Pt taken to endo via [facility] for EGD.
[2025-06-07] VITALS (16 sets, daily range): BP systolic 126–141; BP diastolic 67–81; PULSE 65–95; RESP 10–96; TEMP 36.3–37.4; O2SAT 92–100; BMI 25.7
[2025-06-07] MEDS: INSULIN LISPRO (AdmeLOG) 1 UNIT/0.01 ML UNIT SC ×2 (00:07→06:11)
[2025-06-07 06:20] LABS: Basophils # (Auto) 0.1 Thou/mm3 (0.0-0.2); Basophils % (Auto) 0 % (0-2.5); Eosinophils # (Auto) 0.0 Thou/mm3 (0.0-0.5); Eosinophils % (Auto) 0 % (0-10); Hematocrit 25.7 % (41.0-53.0); Immature Granulocytes Auto 0.28 Thou/mm3 (0.00-0.00); Lymphocytes # (Auto) 1.3 Thou/mm3 (1.0-4.8); Lymphocytes % (Auto) 6 % (10-50); Mean Corpuscular HGB Conc 32.7 g/dl (31.0-37.0); Mean Corpuscular Hemoglobin 30.3 pg (25.0-35.0); Mean Corpuscular Volume 93 fL (80-100); Monocytes # (Auto) 1.0 Thou/mm3 (0.0-0.8); Monocytes % (Auto) 5 % (0-12); Neutrophils # (Auto) 18.6 Thou/mm3 (1.8-7.7); Neutrophils % (Auto) 88 % (37-80); Nucleated Red Blood Cell # 0.06 Thou/mm3 (0.00-0.00); Nucleated Red Blood Cell % 0 /100 WBC (0); Platelet Count 386 Thou/mm3 (140-440); RDW Standard Deviation 51.5 fL (35.1-43.9); Red Blood Count 2.77 Miln/mm3 (4.50-5.90); White Blood Count 21.2 Thou/mm3 (3.8-10.6)
[2025-06-07 06:22] LABS: OBS QC OK? Yes
[2025-06-07 06:26] LABS: Occult Blood, Stool Positive (Negative)
[2025-06-07 06:27] LABS: OBS Performed By CT
[2025-06-07 06:33] LABS: INR 1.0 (0.9-1.3); Prothrombin Time 10.5 Seconds (9.0-12.2)
[2025-06-07 06:35] LABS: Hemoglobin 8.4 g/dL (13.5-16.0)
[2025-06-07 06:39] LABS: Alanine Aminotransferase 13 U/L (10-49); Albumin, Serum 3.3 gm/dL (3.4-4.8); Albumin/Globulin Ratio 1.5 (1.2-2.2); Alkaline Phosphatase 60 U/L (46-116); Anion Gap 9 (7-16); Aspartate Amino Transferase 20 U/L (0-34); BUN/Creatinine Ratio 18 Ratio (12-20); Bilirubin,Total 0.3 mg/dL (0.3-1.2); Blood Urea Nitrogen 21 mg/dL (9-23); Calcium 8.4 mg/dL (8.3-10.6); Calcium (Corrected) 9.0 mg/dL (8.5-10.1); Carbon Dioxide 21.6 mMol/L (20.0-31.0); Cardiac Risk Estimate 4.6 RATIO (4.0-6.7); Chloride 110 mMol/L (98-107); Cholesterol 130 mg/dL (132-200); Creatinine (Component) 1.2 mg/dL (0.6-1.3); Estimated Creatinine Clearance 52.0 mL/min (>60); Globulin 2.2 gm/dL (2.3-3.5); Glucose 177 mg/dL (74-106); HDL Cholesterol 28 mg/dL (40-60); LDL Cholesterol,Calculated 71 mg/dL (0-130); Magnesium 1.9 mg/dL (1.6-2.6); Osmolality,Calculated 288 (275-295); Phosphorous 3.0 mg/dL (2.4-5.1); Potassium 4.7 mMol/L (3.4-5.1); Sodium 141 mMol/L (136-145); Total Protein 5.5 gm/dL (5.7-8.2); Triglycerides 153 mg/dL (30-150); eGFR > 60 See Note
[2025-06-07 06:44] LABS: Glucose Estimated Average 114 mg/dL (80-131); Hemoglobin A1C 5.6 % Hgb (4.8-6.0)
[2025-06-07] MEDS: ALBUTEROL/IPRATROPIUM (Duoneb) RT SOL 3 ML NEBU INH ×4 (06:46→23:05)
[2025-06-07 10:31] LABS: Procalcitonin 2.21 ng/ml (0.0-0.49)
[2025-06-07] MEDS: DOXYCYCLINE 100 MG TABLET PO ×2 (10:36→20:57)
--- NOTE | 2025-06-07 13:58 | PD.RESPRO ---
Documentation for date of: 06/07/25 Subjective Subjective Interval history: Patient was seen and examined at bedside this morning. No acute overnight events. Patient underwent EGD yesterday and showed class III duodenal ulcers which were nonbleeding, erythematous duodenopathy, and gastritis. Hemoglobin today 8.4, will repeat hemoglobin levels in the afternoon to monitor. Otherwise patient stated feeling a lot better. His WBC continue to uptrend and procalcitonin was elevated therefore started doxycycline at this time. Patient's vital signs are still stable. No need for colonoscopy at this time as per GI. Complaining of some finger cramping therefore gave her gabapentin x 1 given smoking history. Exam Vital Signs Temp Pulse Resp BP Pulse Ox O2 Del Method O2 Flow Rate 98.5 F 75 16 128/75 94 L Room Air 1 06/07/25 12:00 06/07/25 12:00 06/07/25 12:00 06/07/25 12:00 06/07/25 12:00 06/07/25 12:00 06/07/25 06:46 FiO2 30 06/06/25 01:25 Narrative Exam General: A/O x3, no acute distress Eyes: PERRL, EOMI. Anicteric, vision grossly intact. Ears: No ear pain, no ear discharge, Hearing grossly intact. Nose: No nasal discharge. Mouth/Throat: Moist mucous membranes, no redness, no lesions. Neck: Neck supple, non-tender, no cervical lymphadenopathy. Lungs: Clear MARQUES to auscultation and percussion, No accessory muscle use. Cardio: Normal S1/S2, regular rhythm, no murmurs, no JVD or carotid bruits. Abdomen: Soft, non-tender, no palpable masses, peristalsis present, no guarding or rebound. Extremities: Symmetrical, no significant deformities, no peripheral edema , non-tender, peripheral pulses presents. Skin: No rashes, no lesions, warm to touch. Neuro: No focal neurological deficits. motor and sensory intact Psych: Cooperative, appropriate mood and effect. Objective Labs 06/08/25 05:43 06/08/25 05:43 Labs: Laboratory Results - last 24 hr 06/06/25 06/06/25 06/07/25 12:51 12:57 05:00 WBC RBC Hgb Hct MCV MCH MCHC RDW Std Deviation Plt Count Neut % (Auto) Lymph % (Auto) [place]ick % (Auto) Eos % (Auto) Baso % (Auto) Neut # (Auto) Lymph # (Auto) [place] # (Auto) Eos # (Auto) Baso # (Auto) Immature Gran # (Auto) Absolute Nucleated RBC Immature Gran % Nucleated RBC % PT INR Sodium Potassium Chloride Carbon Dioxide Anion Gap BUN Creatinine Estim Creat Clear Calc eGFR BUN/Creatinine Ratio Glucose Estimated Ave Glu mg/dL Hemoglobin A1c Calculated Osmolality Calcium Corrected Calcium Phosphorus Magnesium Total Bilirubin AST ALT Alkaline Phosphatase Total Protein Albumin Globulin Albumin/Globulin Ratio Triglycerides Cholesterol LDL Cholesterol, Calc HDL Cholesterol Cholesterol/HDL Ratio Tumor Marker AFP 1.50 Procalcitonin Stool Occult Blood Positive A Hep Bs Antigen Non Reactive Hep Bs Antibody Reactive (Immune) Hep B Core IgM Ab Non Reactive Hepatitis C Antibody Reactive A 06/07/25 06/07/25 05:35 05:55 WBC 21.2 H RBC 2.77 L Hgb 8.4 L Hct 25.7 L MCV 93 MCH 30.3 MCHC 32.7 RDW Std Deviation 51.5 H Plt Count 386 D Neut % (Auto) 88 H Lymph % (Auto) 6 L M[place]ormick % (Auto) 5 Eos % (Auto) 0 Baso % (Auto) 0 Neut # (Auto) 18.6 H Lymph # (Auto) 1.3 [place]ick # (Auto) 1.0 H Eos # (Auto) 0.0 Baso # (Auto) 0.1 Immature Gran # (Auto) 0.28 H Absolute Nucleated RBC 0.06 H Immature Gran % 1 H Nucleated RBC % 0 PT 10.5 INR 1.0 Sodium 141 Potassium 4.7 Chloride 110 H Carbon Dioxide 21.6 Anion Gap 9 BUN 21 Creatinine 1.2 Estim Creat Clear Calc 52.0 L eGFR > 60 BUN/Creatinine Ratio 18 [address]ucose [address] Glu mg/dL 114 Hemoglobin A1c 5.6 Calculated Osmolality 288 Calcium 8.4 Corrected Calcium 9.0 Phosphorus 3.0 Magnesium 1.9 Total Bilirubin 0.3 AST 20 ALT 13 Alkaline Phosphatase 60 Total Protein 5.5 L Albumin 3.3 L D Globulin 2.2 L Albumin/Globulin Ratio 1.5 Triglycerides 153 H Cholesterol 130 L LDL Cholesterol, Calc 71 HDL Cholesterol 28 L Cholesterol/HDL Ratio 4.6 Tumor Marker AFP Procalcitonin 2.21 H Stool Occult Blood Hep Bs Antigen Hep Bs Antibody Hep B Core IgM Ab Hepatitis C Antibody ABG Interpretation ABG results: 06/06/25 02:41 ABG pH 7.39 ABG pCO2 35 ABG pO2 128 H ABG HCO3 21 ABG O2 Saturation 100 H ABG Base Excess -4 L Quality Measures Quality Measures none Advance care planning discussed with:: patient Assessment & Plan Assessment Current Active Medications: Generic Name Dose Route Start Last Admin Trade Name Dayana PRN Reason Stop Dose Admin Acetaminophen 650 mg 06/06/25 07:57 Acetaminophen 325 Mg Tablet PO 07/06/25 07:56 Q6H PRN PAIN 1-3 OR FEVER > 101 Albuterol/Ipratropium 3 ml 06/06/25 07:00 06/07/25 06:46 Albuterol/Ipratropium (Duoneb) Rt Linda 3 Ml Nebu INH 07/06/25 06:59 3 ml Q4HRRT DONTA Administration Dextrose 25 ml 06/06/25 07:59 Dextrose 50%-Water Inj 50 Ml Syringe IV 07/06/25 07:58 Q15MIN PRN BG 50-70 responsive npo pt Dextrose 50 ml 06/06/25 07:59 Dextrose 50%-Water Inj 50 Ml Syringe IV 07/06/25 07:58 Q15MIN PRN BG <50 OR BG <70 & pt unresponsive Doxycycline Hyclate 100 mg 06/07/25 10:00 06/07/25 10:36 Doxycycline 100 Mg Tablet PO 06/14/25 09:59 100 mg BID DONTA Administration Gabapentin 100 mg 06/07/25 13:56 Gabapentin 100 Mg Capsule PO 06/07/25 13:57 X1 ONE Glucagon 1 mg 06/06/25 07:59 Glucagon Inj 1 Mg Vial IM Q15MIN PRN BG <70, and no IV access Magnesium Sulfate 2 gm in 50 mls @ 25 mls/hr 06/07/25 13:56 Magnesium Sulfate Ivpb IV 06/07/25 15:55 X1 ONE Insulin Human Lispro 0 unit 06/07/25 08:00 06/07/25 11:12 Insulin Lispro (Admelog) 1 Unit/0.01 Ml Unit SC 07/07/25 07:59 Not Given AC [facility] Protocol Levothyroxine Sodium 75 mcg 06/08/25 09:00 Levothyroxine Sodium 25 Mcg Tablet PO 07/08/25 08:59 QDAY DONTA Ondansetron HCl 4 mg 06/06/25 07:57 Ondansetron Inj 2 Mg/Ml Inj 2 Ml IV 07/06/25 07:56 Q6H PRN NAUSEA OR VOMITING Protocol Pantoprazole Sodium 40 mg 06/06/25 21:00 06/07/25 09:24 Pantoprazole Inj 40 Mg Vial IVP 07/06/25 20:59 40 mg BID DONTA Administration Pharmacy Consult 1 each 06/06/25 08:07 Pharmacy Renal Dose Adjustment 1 Ea XX 07/06/25 08:06 PRN PRN CONSULT Sennosides 2 tab 06/06/25 07:57 Senna Tablet PO 07/06/25 07:56 BID PRN CONSTIPATION Protocol Sodium Chloride 3 ml 06/06/25 01:02 06/06/25 01:35 Sodium Chloride Rt Linda 0.9% 3 Ml Nebu INH 07/06/25 01:01 3 ml PRN PRN Administration SOLN Plan 69M pmhx significant for recent AAA repair (05/24/25) with stents on aspirin and Plavix, COPD, hypothyroidism and hypertension who presents to [facility] ED on 06/06 for weakness, shortness of breath and melena following release from [facility] hospital on 06/03/25, admitted for melena. #Acute post hemorrhagic anemia #Class III duodenal ulcer, nonbleeding #Erythematous duodenopathy #Melena Presented with 2 month-long history of constipation and dark stools however post AAA repair on 05/24 endorses watery melena. On admission, hemoglobin 6.1, hypotensive, tachycardic, tachypneic with leukocytosis. Lactic acid 2.8->2.5 following fluids. Liver US: Normal gallbladder, cirrhosis versus primary parasellar disease Ddx: gastric ulcer bleed as patient endorses heavy ibuprofen use vs AVM vs diverticulosis bleed Plan: - Protonix 40 mg BID for 30 days (06/06-) and then qday for 60 days - GI consulted, recs appreciated - s/p 2 pRBC 06/06 - Repeat H/H 1500 - Transfuse if Hgb <7 #Community acquired pneumonia Patient initially complained of SOB, but no sputum or cough CXR showed atelectasis vs PNA Procal elevated Got Azithro in ED Vitals stable Plan: Doxycycline 06/07/2025- F/U blood cultures #AAA s/p repair with extensive thoracic and abdominal aortic stents 05/24/25 Patiently underwent AAA repair on 05/24 at [facility], discharged 06/03/25, taking ASA and Plavix. Primary team discussed with Dr. Lopez at [facility], as primary surgeon is on vacation, notified regarding current GI bleed. On admission D-dimer 2k CTA C/A/P interval extensive thoracic abdominal aortic stents which are patent, AP dimension from renal abdominal aorta 5.4 cm, pulmonary artery opacification is abdominal for exclusion of pulmonary emboli. Plan: - Hold ASA and Plavix iso GIB - CTM #HTN #HLD Stable Plan: - Hold home losartan 100 mg iso soft BP and GIB - Continue home rosuvastatin 20 mg QD post EGD after GI discretion #COPD Stable. Uses albuterol once a day. SOB likely 2/2 post hemorrhagic anemia. Plan: - Duoneb q4h prn #Hypothyroidism Plan: - Resume home levothyroxine 75 mcg QD Hospital management: Lines: PIV Diet: PUD Bowel: not indicated GI prophylaxis: IV pantoprazole 40 mg BID DVT prophylaxis: SCDs Disposition: Monitor Hgb and pending cultures CODE STATUS: FULL CODE Case disclosed with Attending Dr. Ashok Reyes PGY2 Disclaimer: Even though this this note was dictated by speech recognition and even though it was carefully revised there may still be minor errors in blow moulding machine operator due to voice recognition software. Attending Provider Attestation/Addendum Doyle, Sidra Pulido DO, attest that I was physically present for the mcnair portions of the service and evaluated the patient with the resident and I reviewed and discussed the case with the resident and agree with the resident's findings and plans of care as documented above Patient seen and eval this a.m. He states that he is feeling well. He denies any shortness of breath, chest, fevers, chills, nausea, vomiting. Patient noted to have elevated WBCs from 18-21. May be secondary to Solu-Medrol and Decadron that was given in the ER. However, concern for possible pneumonia versus COPD exacerbation on initial presentation. Will continue to monitor patient closely and trend H&H as he was found to have a large duodenal ulcer on endoscopy. Patient has a wound in the radial aspect of his medial right upper extremity due to recent stenting of his aorta. Steri-Strips, falling off and wound appears to be healing with some granulation tissue, but slight dehiscence noted. No purulent drainage expressed from wound. Patient currently on doxycycline. Will monitor h/h overnight.Patient has been toelrating diet and denies pain. Anticipate DC within next 24-48h if leukocytosis improves and h/h remains stable.
[2025-06-07] MEDS: Magnesium Sulfate 2 GM Ivpb 2 GM/50 ML BAG IV (14:24)
[2025-06-07] MEDS: GABAPENTIN 100 MG CAPSULE PO (14:24)
[2025-06-07 15:35] LABS: Hematocrit 25.1 % (41.0-53.0)
[2025-06-07 15:45] LABS: Hemoglobin 7.9 g/dL (13.5-16.0)
--- NOTE | 2025-06-07 20:24 | ESPR_ITS ---
Documentation for date of: 06/07/25 Subjective Subjective Interval history: Downward trending hemoglobin hematocrit at 7.9 and 25.1 Endoscopy showed a duodenal ulcer Doc class III with severe duodenitis and gastritis Biopsy for H. pylori pending Exam Vital Signs Temp Pulse Resp BP Pulse Ox O2 Del Method O2 Flow Rate 98.4 F 68 18 127/75 99 Room Air 1 06/07/25 18:32 06/07/25 19:34 06/07/25 19:34 06/07/25 18:32 06/07/25 19:34 06/07/25 16:00 06/07/25 06:46 FiO2 30 06/06/25 01:25 Objective Labs 06/07/25 15:11 06/07/25 05:35 Labs: Laboratory Results - last 24 hr 06/06/25 06/07/25 06/07/25 02:15 05:00 05:35 WBC RBC Hgb Hct MCV MCH MCHC RDW Std Deviation Plt Count Neut % (Auto) Lymph % (Auto) [place] % (Auto) Eos % (Auto) Baso % (Auto) Neut # (Auto) Lymph # (Auto) [place] # (Auto) Eos # (Auto) Baso # (Auto) Immature Gran # (Auto) Absolute Nucleated RBC Immature Gran % Nucleated RBC % PT INR Sodium 141 Potassium 4.7 Chloride 110 H Carbon Dioxide 21.6 Anion Gap 9 BUN 21 Creatinine 1.2 Estim Creat Clear Calc 52.0 L eGFR > 60 BUN/Creatinine Ratio 18 Glucose [address] Glu mg/dL Hemoglobin A1c Calculated Osmolality 288 Calcium 8.4 Corrected Calcium 9.0 Phosphorus 3.0 Magnesium 1.9 Total Bilirubin 0.3 AST 20 ALT 13 Alkaline Phosphatase 60 Total Protein 5.5 L Albumin 3.3 L D Globulin 2.2 L Albumin/Globulin Ratio 1.5 Triglycerides 153 H Cholesterol 130 L LDL Cholesterol, Calc 71 HDL Cholesterol 28 L Cholesterol/HDL Ratio 4.6 Procalcitonin 2.21 H Stool Occult Blood Positive A Blood Type A Positive Antibody Screen NEGATIVE Crossmatch See Detail Blood Bank Wristband ID Yes 06/07/25 06/07/25 05:55 15:11 WBC 21.2 H RBC 2.77 L Hgb 8.4 L 7.9 L Hct 25.7 L 25.1 L MCV 93 MCH 30.3 MCHC 32.7 RDW Std Deviation 51.5 H Plt Count 386 D Neut % (Auto) 88 H Lymph % (Auto) 6 L [place] % (Auto) 5 Eos % (Auto) 0 Baso % (Auto) 0 Neut # (Auto) 18.6 H Lymph # (Auto) 1.3 [place] # (Auto) 1.0 H Eos # (Auto) 0.0 Baso # (Auto) 0.1 Immature Gran # (Auto) 0.28 H Absolute Nucleated RBC 0.06 H Immature Gran % 1 H Nucleated RBC % 0 PT 10.5 INR 1.0 Sodium Potassium Chloride Carbon Dioxide Anion Gap BUN Creatinine Estim Creat Clear Calc eGFR BUN/Creatinine Ratio Glucose Estimated Ave Glu mg/dL 114 Hemoglobin A1c 5.6 Calculated Osmolality Calcium Corrected Calcium Phosphorus Magnesium Total Bilirubin AST ALT Alkaline Phosphatase Total Protein Albumin Globulin Albumin/Globulin Ratio Triglycerides Cholesterol LDL Cholesterol, Calc HDL Cholesterol Cholesterol/HDL Ratio Procalcitonin Stool Occult Blood Blood Type Antibody Screen Crossmatch Blood Bank Wristband ID Impressions Impression: Upper GI bleed secondary to severe duodenitis and duodenal ulcer Gastritis Continue current management ABG Interpretation ABG results: 06/06/25 02:41 ABG pH 7.39 ABG pCO2 35 ABG pO2 128 H ABG HCO3 21 ABG O2 Saturation 100 H ABG Base Excess -4 L Assessment & Plan Time Spent With Patient Time: Total time spent is greater than 50% in coordination of care (as documented) at patient's floor/unit and/or counseling patient:
[2025-06-08] VITALS (8 sets, daily range): BP systolic 128–133; BP diastolic 67–81; PULSE 56–79; RESP 12–96; TEMP 36.3–37.2; O2SAT 93–98; BMI 26.4
[2025-06-08] MEDS: MELATONIN 3 MG TABLET 6 MG PO (00:17)
[2025-06-08] MEDS: ACETAMINOPHEN 325 MG TABLET 650 MG PO (04:29)
[2025-06-08 06:27] LABS: Basophils # (Auto) 0.1 Thou/mm3 (0.0-0.2); Basophils % (Auto) 0 % (0-2.5); Eosinophils # (Auto) 0.2 Thou/mm3 (0.0-0.5); Eosinophils % (Auto) 2 % (0-10); Hematocrit 27.3 % (41.0-53.0); Hemoglobin 8.9 g/dL (13.5-16.0); Immature Granulocytes Auto 0.11 Thou/mm3 (0.00-0.00); Lymphocytes # (Auto) 1.5 Thou/mm3 (1.0-4.8); Lymphocytes % (Auto) 11 % (10-50); Mean Corpuscular HGB Conc 32.6 g/dl (31.0-37.0); Mean Corpuscular Hemoglobin 30.7 pg (25.0-35.0); Mean Corpuscular Volume 94 fL (80-100); Monocytes # (Auto) 0.7 Thou/mm3 (0.0-0.8); Monocytes % (Auto) 5 % (0-12); Neutrophils # (Auto) 10.8 Thou/mm3 (1.8-7.7); Neutrophils % (Auto) 81 % (37-80); Nucleated Red Blood Cell # 0.03 Thou/mm3 (0.00-0.00); Nucleated Red Blood Cell % 0 /100 WBC (0); Platelet Count 335 Thou/mm3 (140-440); RDW Standard Deviation 51.7 fL (35.1-43.9); Red Blood Count 2.90 Miln/mm3 (4.50-5.90); White Blood Count 13.3 Thou/mm3 (3.8-10.6)
[2025-06-08 06:56] LABS: Alanine Aminotransferase 13 U/L (10-49); Albumin, Serum 3.2 gm/dL (3.4-4.8); Albumin/Globulin Ratio 1.5 (1.2-2.2); Alkaline Phosphatase 57 U/L (46-116); Anion Gap 8 (7-16); Aspartate Amino Transferase 19 U/L (0-34); BUN/Creatinine Ratio 15 Ratio (12-20); Bilirubin,Total 0.3 mg/dL (0.3-1.2); Blood Urea Nitrogen 17 mg/dL (9-23); Calcium 8.1 mg/dL (8.3-10.6); Calcium (Corrected) 8.7 mg/dL (8.5-10.1); Carbon Dioxide 23.1 mMol/L (20.0-31.0); Chloride 106 mMol/L (98-107); Creatinine (Component) 1.1 mg/dL (0.6-1.3); Estimated Creatinine Clearance 56.7 mL/min (>60); Globulin 2.1 gm/dL (2.3-3.5); Glucose 86 mg/dL (74-106); Magnesium 1.7 mg/dL (1.6-2.6); Osmolality,Calculated 274 (275-295); Phosphorous 2.4 mg/dL (2.4-5.1); Potassium 3.8 mMol/L (3.4-5.1); Sodium 137 mMol/L (136-145); Total Protein 5.3 gm/dL (5.7-8.2); eGFR > 60 See Note
[2025-06-08] MEDS: ALBUTEROL/IPRATROPIUM (Duoneb) RT SOL 3 ML NEBU INH (07:04)
[2025-06-08] MEDS: LEVOTHYROXINE SODIUM 25 MCG TABLET 75 MCG PO (08:57)
[2025-06-08] MEDS: DOXYCYCLINE 100 MG TABLET PO (08:57)
--- NOTE | 2025-06-08 11:18 | PC.SS ---
Patient is alert/oriented. Patient was able to verify demographics. Patient was admitted for gi bleed. Prior to hospitalization was independent with ADL's. Patient resides with and three grandchildren. Patient states he does not normally use any DME. Patient states his PCP: Dr. Abigail Sahu. Last appt was last week. Upcoming appt. scheduled for Wednesday. Pharmacy: [facility]. Vascular surgeon: Brigid. Patient already worked with PT no AD. Patient to d/c home. Alt medical decision maker: Marcie,
--- NOTE | 2025-06-08 13:49 | ESDS_ITS ---
<Statement entered by Sidra Pulido DO - 06/11/25 07:19> I, Sidra Pulido DO, attest that I was physically present for the mcnair portions of the service and evaluated the patient with the resident and I reviewed and discussed the case with the resident and agree with the resident's findings and plans of care as documented above Planned Discharge Date 06/08/25 DS: Providers Provider Date of admission: 06/06/25 07:58 Primary care physician: Physician No Primary/Family Admitting Provider: Sidra Pulido DO Attending Provider on Admission: Sidra Pulido DO Consults: 06/06/25 09:06 Consult to Gastroenterology Urgent Comment: Consulting Provider: Gemma Kingsley Attending Provider on DC: Sidra Pulido DO Discharging Provider: Sidra Pulido DO DS: Diagnosis Problem List Completed Was Problem List Reviewed/Reconciled?: Yes Hospital Course Hospital Course Hospital course: Summary: Dheeraj Bowman 69M pmhx significant for recent AAA repair (05/24/25) with stents on aspirin and Plavix, COPD, hypothyroidism and hypertension who presents to [facility] ED on 06/06 for weakness, shortness of breath and melena following release from [facility] hospital on 06/03/25, admitted for melena found to have Doc III duodenal ulcer with biopsies taking for H pylori testing. Patient presented with 2 month-long history of constipation and dark stools however post AAA repair on 05/24 endorses watery melena. On admission, hemoglobin 6.1, hypotensive, tachycardic, tachypneic with leukocytosis. Lactic acid 2.8 and downtrended following fluids. In ED, patient received 2 pRBC. Patient underwent EGD on 03/06 which showed gastritis, nonbleeding duodenal ulcer with clean ulcer base Doc class III and erythematous duodenopathy. Per GI, peptic ulcer disease diet and patient is to be discharged on pantoprazole 40 mg twice daily for 30 days and then once a day for 60 days, no need for colonoscopy during this admission. Post EGD, hemoglobin mildly down trended and patient received another unit of PRBC. Hemoglobin stable on discharge. Of note, chest x-ray showed possible pneumonia and given patient's increasing WBC count was empirically treated with antibiotics and will be discharged with continuation. On discharge, patient is hemodynamically stable, labs and vitals reviewed and patient is ready to be discharged home. Imaging: Liver US: Normal gallbladder, cirrhosis versus primary parasellar disease CXR showed atelectasis vs PNA CTA C/A/P interval extensive thoracic abdominal aortic stents which are patent, AP dimension from renal abdominal aorta 5.4 cm, pulmonary artery opacification is abdominal for exclusion of pulmonary emboli. Discharge Recommendations: - Please take all medications as prescribed - Your endoscopy report showed duodenal ulcer and gastritis, recommend to take Protonix twice daily for 30 days and then once a day for 60 days, recommend following up with the primary care physician to go over recent hospitalization, recommend to get a referral for [employer] to establish care. - START doxycyline 100mg twice daily for 4 more days for pneumonia - Also recommend to call your vascular surgeon's office in [place] to go over your recent hospitalization, blood transfusions and blood loss anemia. - HOLD aspirin/blood thinning medications and losartan due to concern for soft blood pressure, you can resume after talking to your primary care physician. - Continue all home medications except as above - Please follow up with your PCP within one week of discharge - If your symptoms worsen, please seek immediate medical attention and return to your nearest emergency room. - If you do not have a PCP, you may follow up at the [facility] at [address] [place] [address] [address], [facility] [address], Hospital Diagnoses: #Acute post hemorrhagic anemia s/p 3 pRBC #Class III duodenal ulcer, nonbleeding #Erythematous duodenopathy #Melena #Community acquired pneumonia #AAA s/p repair with extensive thoracic and abdominal aortic stents 05/24/25 #HTN #HLD #COPD #Hypothyroidism Plan of care discussed with attending Dr. Pulido, and PGY-3 Dr. Sifuentes. Kelley Francis, DO Internal Medicine, PGY-1 Senior resident attestation: Patient evaluated and examined at the bedside, plan of care discussed with rest of the team including my attending physician, except as noted. Bear PGY3 Time Spent with Patient Time attestation: Total time spent providing and/or coordinating discharge services: Time spent: Greater than 30 minutes Exam Vital Signs Temp Pulse Resp BP Pulse Ox O2 Del Method O2 Flow Rate 98.8 F 56 L 18 133/80 H 98 Room Air 1 06/08/25 11:49 06/08/25 11:49 06/08/25 11:49 06/08/25 11:49 06/08/25 11:49 06/08/25 11:49 06/07/25 06:46 FiO2 30 06/06/25 01:25 Narrative Exam GENERAL: AOx3, no acute distress HEENT: mucous membranes moist, bilateral sclera anicteric CARDIOVASCULAR: regular rate and rhythm, S1/S2 present, no murmurs appreciated PULMONARY: mild bilateral expiratory wheezes ABDOMINAL: soft, non-tender, non-distended, no rebound/guarding, bowel sounds present EXTREMITIES: no peripheral edema SKIN: warm and dry, intact, no rashes NEURO: CN II-XII grossly intact, no focal deficits, alert, following commands Discharge Plan Plan Patient Disposition: HOME (Self Care) Care Plan Goals: Your endoscopy report showed duodenal ulcer and gastritis, recommend to take Protonix twice daily for 30 days and then once a day for 60 days, recommend following up with the primary care physician to go over recent hospitalization, recommend to get a referral for [employer] to establish care. Take doxycyline 100mg twice daily for 4 more days. Also recommend to call your vascular surgeon's office in [place] to go over your recent hospitalization, blood transfusions and blood loss anemia. We are holding aspirin/blood thinning medications. Holding losartan due to concern for soft blood pressure, you can resume after talking to your primary care physician. Follow up with Primary care physician with labs within 3-5 days of discharge. If symptoms persist or worsen, return to the Emergency Department. Prescriptions/Referrals Prescriptions/Med Rec: New doxycycline hyclate 100 mg Tablet 100 mg PO BID 4 Days Qty: 8 0RF pantoprazole [Protonix] 40 mg tablet,delayed release (DR/EC) 40 mg PO BID 30 Days Qty: 60 2RF Continued acetaminophen 500 mg tablet 500 mg PO Q8HR PRN (Reason: pain) Patient Comments: TAKE 1 TO 2 TABLETS BY MOUTH EVERY 6 TO 8 HOURS NEEDED. DO NOT EXCEED 6 TABLETS PER 24 HOURS levothyroxine [Synthroid] 75 mcg tablet 75 mcg PO QDAY Patient Comments: TAKE 1 TABLET BY MOUTH EVERY MORNING ON AN EMPTY STOMACH albuterol sulfate 90 mcg/actuation HFA aerosol inhaler 2 puff INHALATION Q6H PRN (Reason: shortness of breath or wheezing) Patient Comments: INHALE 2 PUFFS BY MOUTH EVERY 4 TO 6 HOURS NEEDED rosuvastatin 20 mg tablet 20 mg PO QDAY Held aspirin 81 mg tablet,chewable 1 tab PO QDAY Hold Instructions: Resume on 06/22/25. losartan 100 mg tablet 100 mg PO QDAY Hold Instructions: Resume on 06/15/25. Discontinued peg 3350-electrolytes [GaviLyte-G] 236-22.74-6.74 -5.86 gram recon soln 240 ml PO Q10M Qty: 4000 0RF Rx Instructions: until fecal effluent is clear Referrals: Gemma Kingsley MD [Physician, Gastroenterology] No Primary/Family,Physician [Primary Care Provider] Patient/Caregiver Discharge Instructions Education Materials: Treating Gastritis, Understanding Gastritis, Gastric Duodenal Ulcer Ch Print Language: Guinean Stand Alone Forms: [facility]ia Award Info., Patient Portal Info Letter Discharge Order Discharge Orders: Discharge (Routine); Ordered 06/08/25 Ordered By: Elver Sifuentes Quality Discharge Quality Measures VTE prophylaxis
--- NOTE | 2025-06-08 21:25 | PD.IMPROG ---
Documentation for date of: 06/08/25 Subjective Subjective Interval history: Case discussed with the internal medicine attending Dr. Ashok Shipman to discharge patient on a PPI to be followed by the PCP hemoglobin hematocrit 8.9 and 27.3 Patient Exam Vital Signs Temp Pulse Resp BP Pulse Ox O2 Del Method O2 Flow Rate 98.8 F 61 18 133/80 H 98 Room Air 1 06/08/25 11:49 06/08/25 12:00 06/08/25 11:49 06/08/25 11:49 06/08/25 11:49 06/08/25 11:49 06/07/25 06:46 FiO2 30 06/06/25 01:25 Objective Labs 06/08/25 05:43 06/08/25 05:43 Labs: Laboratory Results - last 24 hr 06/06/25 06/08/25 02:15 05:43 WBC 13.3 H D RBC 2.90 L Hgb 8.9 L Hct 27.3 L MCV 94 MCH 30.7 MCHC 32.6 RDW Std Deviation 51.7 H Plt Count 335 D Neut % (Auto) 81 H Lymph % (Auto) 11 [place] % (Auto) 5 Eos % (Auto) 2 Baso % (Auto) 0 Neut # (Auto) 10.8 H Lymph # (Auto) 1.5 [place] # (Auto) 0.7 Eos # (Auto) 0.2 Baso # (Auto) 0.1 Immature Gran # (Auto) 0.11 H Absolute Nucleated RBC 0.03 H Immature Gran % 1 H Nucleated RBC % 0 Sodium 137 Potassium 3.8 D Chloride 106 Carbon Dioxide 23.1 Anion Gap 8 BUN 17 Creatinine 1.1 Estim Creat Clear Calc 56.7 L eGFR > 60 BUN/Creatinine Ratio 15 Glucose 86 D Calculated Osmolality 274 L Calcium 8.1 L Corrected Calcium 8.7 Phosphorus 2.4 Magnesium 1.7 Total Bilirubin 0.3 AST 19 ALT 13 Alkaline Phosphatase 57 Total Protein 5.3 L Albumin 3.2 L Globulin 2.1 L Albumin/Globulin Ratio 1.5 Crossmatch See Detail Impressions Impression: duodenal ulcer duodenitis relatively stable hemoglobin hematocrit Okay to discharge on a PPI to be followed by the PCP ABG Interpretation ABG results: 06/06/25 02:41 ABG pH 7.39 ABG pCO2 35 ABG pO2 128 H ABG HCO3 21 ABG O2 Saturation 100 H ABG Base Excess -4 L Assessment & Plan Time Spent With Patient Time: Total time spent is greater than 50% in coordination of care (as documented) at patient's floor/unit and/or counseling patient:
== END 2025-06-08 12:28 | disposition home or self-care (01) | DRG 377 ==
LOC: SERX 05:00 → SERHOLD 08:14 → S2NX 11:22
PROVIDERS: Specialist; Student in an Organized Health Care Education/Training Program; Admitting Provider Internal Medicine; Emergency Provider Emergency Medicine; Visit Provider Internal Medicine
PROC: 0DB48ZX Excision of Esophagogastric Junction, Via Natural or Artificial Opening Endoscopic, Diagnostic (ICD-10-PCS; CPT 43239; principal; 2025-06-06 18:00)
DX: K26.4 Chronic or unspecified duodenal ulcer with hemorrhage (principal); J18.9 Pneumonia, unspecified organism; D62 Acute posthemorrhagic anemia; E87.20 Acidosis, unspecified; N17.9 Acute kidney failure, unspecified; K56.7 Ileus, unspecified; J44.0 Chronic obstructive pulmonary disease with (acute) lower respiratory infection; E03.9 Hypothyroidism, unspecified; I10 Essential (primary) hypertension; Z86.79 Personal history of other diseases of the circulatory system; E78.5 Hyperlipidemia, unspecified; K29.70 Gastritis, unspecified, without bleeding; K26.9 Duodenal ulcer, unspecified as acute or chronic, without hemorrhage or perforation; K31.89 Other diseases of stomach and duodenum; K29.81 Duodenitis with bleeding; K52.9 Noninfective gastroenteritis and colitis, unspecified; Z79.02 Long term (current) use of antithrombotics/antiplatelets; Z79.82 Long term (current) use of aspirin; Z79.890 Hormone replacement therapy; Z79.899 Other long term (current) drug therapy; Z87.891 Personal history of nicotine dependence
CPT/HCPCS: 36415; 36600; 71045; 71275; 74174; 76705; 80053; 80061; 80069; 80307; 81001; 82105; 82270; 82803; 83036; 83605; 83735; 83880; 84100; 84145; 84484; 85014; 85018; 85025; 85379; 85610; 86705; 86706; 86803; 86850; 86900; 86901; 86923; 87040; 87081; 87340; 93005; 94640; 94644; 94660; 94664; 96361; 96365; 96366; 96375; 96376; 99284; A4216; A4649; A9270; J0456; J0696; J1100; J1200; J1815; J2250; J2354; J2470; J2919; J3010; J3475; J3490; J7030; J7050; J7999; P9016; Q9967; J1836

== ENCOUNTER → 2025-06-25 | Outpatient (CLI) | payer OTHER, MEDICAID, SELFPAY ==
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
== END | disposition home or self-care (01) ==
PROVIDERS: PCP Family Medicine; Referring Provider Family Medicine; Visit Provider Family Medicine
DX: R10.84 Generalized abdominal pain (principal)
CPT/HCPCS: 74018

== ENCOUNTER 2025-07-06 11:46 | Emergency (ER) | payer OTHER, MEDICAID, SELFPAY ==
--- NOTE | 2025-07-06 12:24 | PD.EDRME ---
Rapid Medical Screening Exam E Arrival date/time: 07/06/25 11:46 69-year-old male with a history of a bleeding ulcer, hypothyroidism, hyperlipidemia, hypertension presents to the emergency room with a chief complaint of black tarry stool x 2 days. Patient states he was seen by Dr. Kingsley and told he has a bleeding ulcer. His last visit the patient had to get 3 units of red blood cells. I have greeted and performed a focused initial assessment of this patient. A comprehensive ED assessment and evaluation of the patient, analysis of all test results, and completion of the medical decision making process will be conducted by additional ED providers. Chief Complaint: GI Bleed Vital signs reviewed by provider: Yes Exam: Soft nontender abdomen. No distention Clear bilateral lung sounds Clinical Impression: Lower GI bleed/upper GI bleed
[2025-07-06 12:25] VITALS: BP 154/95; PULSE 88; RESP 18; TEMP 36.9; O2SAT 99; BMI 27.6
[2025-07-06 13:05] LABS: Basophils # (Auto) 0.1 Thou/mm3 (0.0-0.2); Basophils % (Auto) 1 % (0-2.5); Eosinophils # (Auto) 0.2 Thou/mm3 (0.0-0.5); Eosinophils % (Auto) 4 % (0-10); Hematocrit 33.6 % (41.0-53.0); Hemoglobin 10.6 g/dL (13.5-16.0); Immature Granulocytes Auto 0.03 Thou/mm3 (0.00-0.00); Lymphocytes # (Auto) 1.3 Thou/mm3 (1.0-4.8); Lymphocytes % (Auto) 21 % (10-50); Mean Corpuscular HGB Conc 31.5 g/dl (31.0-37.0); Mean Corpuscular Hemoglobin 29.5 pg (25.0-35.0); Mean Corpuscular Volume 94 fL (80-100); Monocytes # (Auto) 0.6 Thou/mm3 (0.0-0.8); Monocytes % (Auto) 9 % (0-12); Neutrophils # (Auto) 4.2 Thou/mm3 (1.8-7.7); Neutrophils % (Auto) 66 % (37-80); Nucleated Red Blood Cell # 0.00 Thou/mm3 (0.00-0.00); Nucleated Red Blood Cell % 0 /100 WBC (0); Platelet Count 324 Thou/mm3 (140-440); RDW Standard Deviation 47.8 fL (35.1-43.9); Red Blood Count 3.59 Miln/mm3 (4.50-5.90); White Blood Count 6.3 Thou/mm3 (3.8-10.6)
[2025-07-06 13:25] LABS: INR 1.0 (0.9-1.3); Partial Thromboplastin Time 26.8 Seconds (22.0-36.0); Prothrombin Time 10.8 Seconds (9.0-12.2)
[2025-07-06 13:41] LABS: Alanine Aminotransferase < 7 U/L (10-49); Albumin, Serum 4.7 gm/dL (3.4-4.8); Albumin/Globulin Ratio 1.4 (1.2-2.2); Alkaline Phosphatase 111 U/L (46-116); Anion Gap 9 (7-16); Aspartate Amino Transferase 14 U/L (0-34); BUN/Creatinine Ratio 9 Ratio (12-20); Bilirubin,Total 0.3 mg/dL (0.3-1.2); Blood Urea Nitrogen 9 mg/dL (9-23); Calcium 9.6 mg/dL (8.3-10.6); Calcium (Corrected) 9.6 mg/dL (8.5-10.1); Carbon Dioxide 27.2 mMol/L (20.0-31.0); Chloride 104 mMol/L (98-107); Creatinine (Component) 1.0 mg/dL (0.6-1.3); Estimated Creatinine Clearance 63.3 mL/min (>60); Globulin 3.4 gm/dL (2.3-3.5); Glucose 94 mg/dL (74-106); Lipase 23 U/L (12-53); Osmolality,Calculated 278 (275-295); Potassium 4.0 mMol/L (3.4-5.1); Sodium 140 mMol/L (136-145); Total Protein 8.1 gm/dL (5.7-8.2); eGFR > 60 See Note
[2025-07-06 13:42] LABS: Collection Type, Urine Clean Catch
[2025-07-06 13:54] LABS: Bilirubin,Urine Negative (Negative); Blood,Urine Trace (Negative); Clarity,Urine Clear (Clear/Hazy); Color,Urine Yellow (Lt Yel-Yel); Glucose, Urine Negative (Negative); Ketones,Urine Negative (Negative); Leukocyte Esterase,Urine Negative (Negative); Nitrite,Urine Negative (Negative); PH,Urine 6.0 (5.0-7.0); Protein,Urine 1+ (Neg - Trace); RBC,Urine 6 /hpf (0-3); Specific Gravity,Urine 1.026 (1.001-1.035); Squamous Epithelial Cell,Urine < 1 /hpf (0-5); Urobilinogen,Urine Negative mg/dL (0.0-1.0); WBC,Urine 3 /hpf (0-5)
--- NOTE | 2025-07-06 14:39 | PD.EDGIBLD ---
ED GI Bleed RME/HPI General Chief complaint: GI Bleed Stated complaint: BLACK STOOL Time Seen by Provider: 07/06/25 13:51 Arrival date/time: 07/06/25 11:46 69 male patient with significant history of duodenal ulcer, came in for evaluation regarding goodness black stool has been ongoing for the last 3 days. Patient denies any abdominal pain denies any dizziness. Patient is currently taking pantoprazole for duodenal ulcer. He was admitted here last month and was scoped by Dr. Kingsley. There was no active bleeding during that time. Except for duodenal ulcer. Multiple. Patient is also taking a lot of Pepto-Bismol according to him due to constipation. Scheduled for appointment with Dr. Kingsley, this coming August. Patient is ambulatory. RME / HPI RME / HPI Narrative: 69-year-old male with a history of a bleeding ulcer, hypothyroidism, hyperlipidemia, hypertension presents to the emergency room with a chief complaint of black tarry stool x 2 days. Patient states he was seen by Dr. Kingsley and told he has a bleeding ulcer. His last visit the patient had to get 3 units of red blood cells. Exam: Soft nontender abdomen. No distention Clear bilateral lung sounds Impression: Lower GI bleed/upper GI bleed Related Data Home Medications ?Medication ?Instructions ?Recorded ?Confirmed acetaminophen 500 mg tablet 500 mg PO Q8HR PRN pain 06/06/25 06/06/25 albuterol sulfate 90 mcg/actuation 2 puff inhalation Q6H PRN 06/06/25 06/06/25 aerosol inhaler shortness of breath or wheezing aspirin 81 mg chewable tablet 1 tab PO QDAY 06/06/25 06/06/25 Held on 06/08/25. Instructions: Resume on 06/22/25. levothyroxine 75 mcg tablet 75 mcg PO QDAY 06/06/25 06/06/25 (Synthroid) losartan 100 mg tablet 100 mg PO QDAY 06/06/25 06/06/25 Held on 06/08/25. Instructions: Resume on 06/15/25. rosuvastatin 20 mg tablet 20 mg PO QDAY 06/06/25 06/06/25 Previous Rx's ?Medication ?Instructions ?Recorded pantoprazole 40 mg tablet,delayed 40 mg PO BID 30 days #60 tabs 06/08/25 release (Protonix) sucralfate 1 gram tablet (Carafate) 1 g PO BID #20 tabs 07/06/25 Allergies Allergy/AdvReac Type Severity Reaction Status Date / Time No Known Allergies Allergy Verified 07/06/25 11:49 Review of Systems Review of Systems Narrative Review of Systems: Review of system reviewed and within normal limits except mentioned in HPI ED Exam Narrative Physical exam: VITAL SIGNS: Reviewed. GENERAL APPEARANCE: Alert and interactive, follows commands, no acute distress, HEAD AND FACE: Non-traumatic. ENT: PERRL, pink conjunctivitis, eyelid no trauma, Mucous membrane moist. NECK: Supple, nontender, no nuchal rigidity. CHEST: No tenderness, no crepitus, no paradoxical movement, no retractions. LUNGS: Clear, well ventilated, symmetric, no rales, no wheezing, no ronchi, no stridor, good breath sounds bilaterally. HEART: Regular rate, regular rhythm, no murmur, no gallops. ABDOMEN: Soft, positive bowel sounds, nondistended, no guarding, nontender, no rebound, no masses, RECTAL: Rectal exam was done by me, dark-colored stool however is not black tarry. Tested negative for occult blood GENITAL: Deferred. NEUROLOGICAL: Gross motor function intact sensory function intact, Appropriate for age. MUSCULOSKELETAL: low back nontender, full range of motion. EXTREMITIES: Nontender, full range of motion. SKIN: Color pink, dry, no rash, no lacerations, no abrasions, no contusions. LYMPHATICS: Deferred. Course Quality Measures none Orders Category Date Time Status Occult Blood,Stool (Nursing) NOW Care 07/06/25 14:32 Active CBC Stat Lab 07/06/25 12:41 Completed CMP [Comprehensive Metabolic Panel] Stat Lab 07/06/25 12:41 Completed Lipase Stat Lab 07/06/25 12:41 Completed PT [Prothrombin Time with INR] Stat Lab 07/06/25 12:41 Completed PTT [Partial Thromboplastin Time] Stat Lab 07/06/25 12:41 Completed Type and Screen Stat Lab 07/06/25 12:41 Completed UA [Urinalysis] Stat Lab 07/06/25 13:00 Completed Urine Culture Stat Lab 07/06/25 12:59 Received Vital Signs Vital signs: Vital Signs Temperature 98.5 F 07/06/25 12:25 Pulse Rate 88 07/06/25 12:25 Respiratory Rate 18 07/06/25 12:25 Blood Pressure 154/95 H 07/06/25 12:25 Pulse Oximetry (%) 99 07/06/25 12:25 Oxygen Delivery Method Room Air 07/06/25 12:25 GI Bleed MDM Narrative MDM Narrative:: 07/06/25 11:46 69 male patient with significant history of duodenal ulcer, came in for evaluation regarding goodness black stool has been ongoing for the last 3 days. Patient denies any abdominal pain denies any dizziness. Patient is currently taking pantoprazole for duodenal ulcer. He was admitted here last month and was scoped by Dr. Kingsley. There was no active bleeding during that time. Except for duodenal ulcer. Multiple. Patient is also taking a lot of Pepto-Bismol according to him due to constipation. Scheduled for appointment with Dr. Kingsley, this coming August. Patient is ambulatory. Rectal exam was tested negative for occult blood. Patient's hemoglobin today was noted to be 10.6, last month on the day of discharge patient's hemoglobin was noted to be 8.6. Patient was advised to return to emergency room if he noticed black tarry stool. I also advised him to stop taking Pepto-Bismol. Which can discolor the stool. Patient is stable for charged home vital signs normal patient is ambulatory. Patient data External records reviewed:: None Clinical information provided by:: patient Social determinants that could affect healthcare access:: none Patient has the following chronic illnesses:: History of upper GI bleed How is presenting disease/condition affected by chronic disease/condition?: exacerbated by Evaluation data The following diagnostics were reviewed and interpreted by me:: lab results and radiology exam(s) Lab and/or radiology exams considered but not ordered:: None Interpretation Summary: See above Medications / Prescriptions Medications or Prescriptions considered but not ordered:: None Medication administrations:: None Consultations Consultation(s) initiated? (list below): No Diagnosis GI bleed differential diagnosis: Adrianne-Corona syndrome, Upper gastrointestinal hemorrhage and melena Most likely diagnosis given after review of the tests above:: Dark-colored stool, history of upper GI bleed Admission Indicated Admission indicated?: not indicated Explain why admission is indicated or not indicated:: Stable Admission Request Was there a request for admission?: No Disposition Plan Disposition Plan: Discharge Discharge Attestation Discharge Attestation: The patient was given an opportunity to ask questions and understood the discharge instructions. Discharge instructions specifically effects, indications for sooner follow up or return to the emergency department, and the expected course of current diagnosis. Patient condition: Stable Discharge Plan Plan Patient Disposition: HOME (Self Care) Discharge Disposition comment: Stable Prescriptions/Referrals Prescriptions/Med Rec: New sucralfate [Carafate] 1 gram tablet 1 g PO BID Qty: 20 0RF No Action acetaminophen 500 mg tablet 500 mg PO Q8HR PRN (Reason: pain) Patient Comments: TAKE 1 TO 2 TABLETS BY MOUTH EVERY 6 TO 8 HOURS NEEDED. DO NOT EXCEED 6 TABLETS PER 24 HOURS levothyroxine [Synthroid] 75 mcg tablet 75 mcg PO QDAY Patient Comments: TAKE 1 TABLET BY MOUTH EVERY MORNING ON AN EMPTY STOMACH aspirin 81 mg tablet,chewable 1 tab PO QDAY albuterol sulfate 90 mcg/actuation HFA aerosol inhaler 2 puff INHALATION Q6H PRN (Reason: shortness of breath or wheezing) Patient Comments: INHALE 2 PUFFS BY MOUTH EVERY 4 TO 6 HOURS NEEDED losartan 100 mg tablet 100 mg PO QDAY rosuvastatin 20 mg tablet 20 mg PO QDAY pantoprazole [Protonix] 40 mg tablet,delayed release (DR/EC) 40 mg PO BID 30 Days Qty: 60 2RF Referrals: Mauri Sahu MD [Primary Care Provider, Family Practice] - In 1 week Problem List Clinical Impression: Stool discoloration, History of upper gastrointestinal hemorrhage Patient/Caregiver Discharge Instructions Discharge Activity: activity as tolerated Education Materials: Bleeding Gastrointestinal Additional Instructions: Thank you for the opportunity for serving you today. You are stable for discharged . You are advised to: Follow-up with your PCP in 1 to 2 days Return to ED for worsening of symptoms Increase oral fluids Take medication as prescribed Print Language: Norwegian Stand Alone Forms: Ashia Award Info., Patient Portal Info Letter PA/DIESEL POWERPLANT MECHANIC HELPER Supervising Physician PA/TACHO Supervising Physician: Dr Ricks
[2025-07-06 14:40] VITALS: BP 138/91; PULSE 71; RESP 16; TEMP 36.9; O2SAT 97
[2025-07-06 14:44] LABS: OBS Developer Lot # 424; OBS Performed By DIAZB; OBS QC OK? Yes; Occult Blood, Stool Negative (Negative)
== END 2025-07-06 14:45 | disposition home or self-care (01) ==
PROVIDERS: Nurse Practitioner Family; Emergency Provider Emergency Medicine; PCP Family Medicine
DX: R19.5 Other fecal abnormalities (principal)
CPT/HCPCS: 36415; 80053; 81001; 82270; 83690; 85025; 85610; 85730; 86850; 86900; 86901; 87086; 99282

== ENCOUNTER 2025-07-21 21:17 | Emergency (ER) | payer OTHER, MEDICAID, SELFPAY ==
[2025-07-21 21:19] VITALS: BMI 26.6
[2025-07-21 21:33] VITALS: BP 176/99; PULSE 117; RESP 20; TEMP 36.6; O2SAT 94
--- NOTE | 2025-07-21 21:35 | EKG_ITS ---
[facility] Test Date: 2025-07-21 Pat Name: APRIL RIVER Department: Room: - Gender: Male Teller Vault: : 1955 Requested By: Angelita Betancourt Order Number: [id number] Reading MD: Angelita Betancourt Measurements Intervals [place] Rate: 102 P: 58 MA: 143 QRS: 256 QRSD: 102 T: 64 QT: 341 QTc: 444 Interpretive Statements SINUS TACHYCARDIA RIGHT AXIS DEVIATION [QRS AXIS > 100] PATTERN CONSISTENT WITH PULMONARY DISEASE POSSIBLE INFERIOR MYOCARDIAL INFARCTION , PROBABLY OLD [30 ms Q WAVE IN II/aVF] Compared to ECG 02/21/2025 11:18:54 Right-axis deviation now present Sinus rhythm no longer present Indeterminate axis no longer present Myocardial infarct finding still present /store/S0/[id number]/ecg/[id number].pdf
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
--- NOTE | 2025-07-21 21:35 | XR_ITS ---
Examination: CTA chest with intravenous contrast 2-D reconstructions 3-D reconstructions, vascular Date and time of exam: July 21, 2025, 11:16 p.m. INDICATIONS: Onset chest pain shortness of breath today CTDI: vol (mGy) 16.1 DLP: (mGycm) 394 Technique: Multiple axial sections of the thorax have been obtained. 3 mm slice thickness, from below the hemidiaphragms to above the apices of the lungs. Mediastinal and lung density settings have been obtained. 2-D sagittal and coronal reconstructions. 3-D angiographic renderings, 3-D volume renderings, 3D post processing, vascular maximum intensity projections obtained. Contrast administered is 100 cc [id number]. Low dose protocols were performed. One or more of the following dose reduction techniques were used; automated exposure control, adjustment of the mA and/or KV according to patient size, use of iterative reconstruction technique. 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 in the tillman of the descending thoracic aorta, distal thoracic aortic and abdominal aortic aneurysm with iliac endoluminal stents Infrarenal abdominal aorta 4.9 cm in dimension Stents appear patent COPD with airspace destruction Pneumonia in the right middle lobe and right base with calcifications No gallstones Spleen not enlarged Bilateral renal cysts IMPRESSION: Negative for pulmonary artery emboli Aneurysmal dilatation descending thoracic aorta and abdominal aorta with thoracic aortic endoluminal iliac stent Ulcerations in the wall of the descending thoracic aorta above the stent placement, recommend assessment by the cardiovascular team that placed the endoluminal stent Pneumonia right middle lobe and right base
--- NOTE | 2025-07-21 21:37 | PD.EDADULT ---
ED General RME/HPI General Chief complaint: General Adult/Misc Complain Stated complaint: HEMOTISIS Time Seen by Provider: 07/21/25 21:30 Arrival date/time: 07/21/25 21:17 69-year-old male patient with significant history of hyperlipidemia, hypertension hypothyroidism resident aortic aneurysm surgery was brought in by family for evaluation regarding hemoptysis. Patient has been having coughing up blood since 4 PM today, almost every 5 minutes, he coughed out moderate amount of blood. Patient is also complaining of shortness of breath which is relieved after coughing out. Patient denies any chest pain. Denies any vomiting blood denies any dizziness. Patient denies any other complaints. Related Data Home Medications ?Medication ?Instructions ?Recorded ?Confirmed acetaminophen 500 mg tablet 500 mg PO Q8HR PRN pain 06/06/25 06/06/25 albuterol sulfate 90 mcg/actuation 2 puff inhalation Q6H PRN 06/06/25 06/06/25 aerosol inhaler shortness of breath or wheezing aspirin 81 mg chewable tablet 1 tab PO QDAY 06/06/25 06/06/25 Held on 06/08/25. Instructions: Resume on 06/22/25. levothyroxine 75 mcg tablet 75 mcg PO QDAY 06/06/25 06/06/25 (Synthroid) losartan 100 mg tablet 100 mg PO QDAY 06/06/25 06/06/25 Held on 06/08/25. Instructions: Resume on 06/15/25. rosuvastatin 20 mg tablet 20 mg PO QDAY 06/06/25 06/06/25 Previous Rx's ?Medication ?Instructions ?Recorded pantoprazole 40 mg tablet,delayed 40 mg PO BID 30 days #60 tabs 06/08/25 release (Protonix) sucralfate 1 gram tablet (Carafate) 1 g PO BID #20 tabs 07/06/25 Allergies Allergy/AdvReac Type Severity Reaction Status Date / Time No Known Allergies Allergy Verified 07/21/25 21:25 Review of Systems Review of Systems Narrative Review of Systems: Review of system reviewed and within normal limits except mentioned in HPI ED Exam Narrative Physical exam: VITAL SIGNS: Reviewed. GENERAL APPEARANCE: Alert and interactive, follows commands, no acute distress, HEAD AND FACE: Non-traumatic. ENT: PERRL, pink conjunctivitis, eyelid no trauma, Mucous membrane moist. NECK: Supple, nontender, no nuchal rigidity. CHEST: No tenderness, no crepitus, no paradoxical movement, no retractions. LUNGS: Clear, well ventilated, symmetric, no rales, no wheezing, no ronchi, no stridor, good breath sounds bilaterally. HEART: Regular rate, regular rhythm, no murmur, no gallops. ABDOMEN: Soft, positive bowel sounds, nondistended, no guarding, nontender, no rebound, no masses, RECTAL: Deferred. GENITAL: Deferred. NEUROLOGICAL: Gross motor function intact sensory function intact, Appropriate for age. MUSCULOSKELETAL: low back nontender, full range of motion. EXTREMITIES: Nontender, full range of motion. SKIN: Color pink, dry, no rash, no lacerations, no abrasions, no contusions. LYMPHATICS: Deferred. Course Quality Measures none Orders Category Date Time Status CT Screening NOW Care 07/21/25 21:36 Active Gas Fitter Helper Q4H START 00 Care 07/21/25 21:35 Active EKG (ED ONLY) *Do not use* NOW Care 07/21/25 21:[address] angio chest Stat Exams 07/21/25 21:35 Completed EKG (ED Only) Stat Exams 07/21/25 21:35 Draft XR chest 1V Stat Exams 07/21/25 21:35 Completed B-Type Natriuretic Peptide Stat Lab 07/21/25 21:53 Completed CBC Stat Lab 07/21/25 21:53 Completed Comprehensive Metabolic Panel Stat Lab 07/21/25 21:53 Completed Partial Thromboplastin Time Stat Lab 07/21/25 21:53 Completed Prothrombin Time with INR Stat Lab 07/21/25 21:53 Completed Sputum Culture and Gram Stain Stat Lab 07/21/25 21:45 Received Troponin I Stat Lab 07/21/25 21:53 Completed Type and Screen Stat Lab 07/21/25 21:53 Completed Urinalysis, C/S if Indicated Stat Lab 07/22/25 00:00 Completed Azithromycin Inj [Zithromax Inj] 500 mg Med 07/22/25 00:15 Active Sodium Chloride 0.9% 250 ml [Ns] 250 ml IV X1 EPINEPHrine Rt Linda [Racemic Epi Rt Linda] Med 07/21/25 22:13 Discontinued 0.5 ml INH X1 ONE Sodium Chloride Rt Linda 0.9% [NS Rt Linda 0.9%] Med 07/21/25 22:13 Active 3 ml INH PRN PRN Sodium Chloride Rt Linda 10% [NS Rt Linda 10%] Med 07/21/25 21:45 Discontinued 5 ml INH X1 ONE Tranexamic Acid 1,000 mg Ivpb [Tranexamic Acid Ivpb] Med 07/21/25 21:37 Discontinued 1,000 mg in 100 ml IV X1 cefTRIAXone/D5w 1gm IV premix [Rocephin/D5w 1gm IV Med 07/22/25 00:15 Active premix] 1 gm in 50 ml IV X1 Sputum Induction PRN RT 07/21/25 21:45 Ordered Vital Signs Vital signs: Vital Signs Temperature 97.8 F 07/21/25 21:33 Pulse Rate 117 H 07/21/25 21:33 Respiratory Rate 20 07/21/25 21:33 Blood Pressure 176/99 H 07/21/25 21:33 Pulse Oximetry (%) 94 L 07/21/25 21:33 Oxygen Delivery Method Room Air 07/21/25 21:33 Discharge Plan Prescriptions/Referrals Prescriptions/Med Rec: No Action acetaminophen 500 mg tablet 500 mg PO Q8HR PRN (Reason: pain) Patient Comments: TAKE 1 TO 2 TABLETS BY MOUTH EVERY 6 TO 8 HOURS NEEDED. DO NOT EXCEED 6 TABLETS PER 24 HOURS levothyroxine [Synthroid] 75 mcg tablet 75 mcg PO QDAY Patient Comments: TAKE 1 TABLET BY MOUTH EVERY MORNING ON AN EMPTY STOMACH aspirin 81 mg tablet,chewable 1 tab PO QDAY albuterol sulfate 90 mcg/actuation HFA aerosol inhaler 2 puff INHALATION Q6H PRN (Reason: shortness of breath or wheezing) Patient Comments: INHALE 2 PUFFS BY MOUTH EVERY 4 TO 6 HOURS NEEDED losartan 100 mg tablet 100 mg PO QDAY rosuvastatin 20 mg tablet 20 mg PO QDAY pantoprazole [Protonix] 40 mg tablet,delayed release (DR/EC) 40 mg PO BID 30 Days Qty: 60 2RF sucralfate [Carafate] 1 gram tablet 1 g PO BID Qty: 20 0RF Problem List Clinical Impression: Hemoptysis Patient/Caregiver Discharge Instructions Print Language: Czech MDM Narrative MDM hospital course (for use when minimal MDM required): 07/21/25 21:17 69-year-old male patient with significant history of hyperlipidemia, hypertension hypothyroidism resident aortic aneurysm surgery was brought in by family for evaluation regarding hemoptysis. Patient has been having coughing up blood since 4 PM today, almost every 5 minutes, he coughed out moderate amount of blood. Patient is also complaining of shortness of breath which is relieved after coughing out. Patient denies any chest pain. Denies any vomiting blood denies any dizziness. Patient denies any other complaints. Patient's hemoglobin was noted to be 10.5 hematocrit 33.6 platelet is normal. CMP unremarkable chest x-ray showed Scarring at the lung bases No lobar pneumonia Recommend CT chest without contrast follow-up to exclude 18 mm pulmonary mass right lower lobe Patient was given tranexamic acid IV and racemic epinephrine nebulization. On reevaluation patient is not coughing up blood anymore Pending CTA chest scan results. Care transferred to Dr Gallardo for final disposition Medication Administration(s) Medication Administration History Azithromycin 500 mg/ Sodium (Chloride) 250 mls @ 250 mls/hr IV X1 ONE Stop: 07/22/25 01:14 Ceftriaxone Sodium/Dextrose (Rocephin/D5w 1gm Iv Premix) 1 gm in 50 mls @ 100 mls/hr IV X1 ONE Stop: 07/22/25 00:44 Sodium Chloride (Sodium Chloride Rt Linda 0.9% 3 Ml Nebu) 3 ml INH PRN PRN PRN Reason: SOLN Stop: 08/20/25 22:12 Last Admin: 07/21/25 22:23 Dose: 3 ml Documented By: FREDY Discontinued Medications Epinephrine (Epinephrine Rt Linda 0.5 Ml Nebu) 0.5 ml INH X1 ONE Stop: 07/21/25 22:14 Last Admin: 07/21/25 22:23 Dose: 0.5 ml Documented By: FREDY Tranexamic Acid (Tranexamic Acid Ivpb) 1,000 mg in 100 mls @ 200 mls/hr IV X1 ONE Stop: 07/21/25 22:06 Last Infusion: 07/21/25 23:03 Dose: Infused Documented By: Admin: 07/21/25 22:32 Dose: 200 mls/hr Documented By: RUBENS Sodium Chloride (Sodium Chloride Rt 10% 15 Ml Nebu) 5 ml INH X1 ONE Stop: 07/21/25 21:46 Last Admin: 07/21/25 22:22 Dose: Not Given Documented By: KL Non-Admin Reason: Pt expectorated sputum sample w/o need for tx
[2025-07-21 22:00] LABS: Basophils # (Auto) 0.1 Thou/mm3 (0.0-0.2); Basophils % (Auto) 1 % (0-2.5); Eosinophils # (Auto) 0.4 Thou/mm3 (0.0-0.5); Eosinophils % (Auto) 5 % (0-10); Hematocrit 33.6 % (41.0-53.0); Hemoglobin 10.5 g/dL (13.5-16.0); Immature Granulocytes Auto 0.05 Thou/mm3 (0.00-0.00); Lymphocytes # (Auto) 1.5 Thou/mm3 (1.0-4.8); Lymphocytes % (Auto) 19 % (10-50); Mean Corpuscular HGB Conc 31.3 g/dl (31.0-37.0); Mean Corpuscular Hemoglobin 28.9 pg (25.0-35.0); Mean Corpuscular Volume 93 fL (80-100); Monocytes # (Auto) 0.7 Thou/mm3 (0.0-0.8); Monocytes % (Auto) 8 % (0-12); Neutrophils # (Auto) 5.2 Thou/mm3 (1.8-7.7); Neutrophils % (Auto) 66 % (37-80); Nucleated Red Blood Cell # 0.00 Thou/mm3 (0.00-0.00); Nucleated Red Blood Cell % 0 /100 WBC (0); Platelet Count 270 Thou/mm3 (140-440); RDW Standard Deviation 48.5 fL (35.1-43.9); Red Blood Count 3.63 Miln/mm3 (4.50-5.90); White Blood Count 7.9 Thou/mm3 (3.8-10.6)
[2025-07-21 22:06] VITALS: PULSE 92
[2025-07-21 22:14] LABS: INR 1.0 (0.9-1.3); Partial Thromboplastin Time 27.8 Seconds (22.0-36.0); Prothrombin Time 10.3 Seconds (9.0-12.2)
[2025-07-21 22:17] LABS: Alanine Aminotransferase < 7 U/L (10-49); Albumin, Serum 4.4 gm/dL (3.4-4.8); Albumin/Globulin Ratio 1.4 (1.2-2.2); Alkaline Phosphatase 94 U/L (46-116); Anion Gap 10 (7-16); Aspartate Amino Transferase 13 U/L (0-34); BUN/Creatinine Ratio 11 Ratio (12-20); Bilirubin,Total 0.2 mg/dL (0.3-1.2); Blood Urea Nitrogen 12 mg/dL (9-23); Calcium 9.2 mg/dL (8.3-10.6); Calcium (Corrected) 9.2 mg/dL (8.5-10.1); Carbon Dioxide 24.8 mMol/L (20.0-31.0); Chloride 108 mMol/L (98-107); Creatinine (Component) 1.1 mg/dL (0.6-1.3); Estimated Creatinine Clearance 56.7 mL/min (>60); Globulin 3.2 gm/dL (2.3-3.5); Glucose 130 mg/dL (74-106); Osmolality,Calculated 286 (275-295); Potassium 3.3 mMol/L (3.4-5.1); Sodium 143 mMol/L (136-145); Total Protein 7.6 gm/dL (5.7-8.2); Troponin I < 0.020 ng/mL (0.0-0.045); eGFR > 60 See Note
[2025-07-21] MEDS: SODIUM CHLORIDE RT SOL 0.9% 3 ML NEBU INH (22:23)
[2025-07-21] MEDS: EPINEPHrine RT SOL 0.5 ML NEBU INH (22:23)
[2025-07-21 22:28] VITALS: PULSE 88; RESP 23; O2SAT 94
[2025-07-21 22:32] LABS: B-Type Natriuretic Peptide 45 pg/mL (0-100)
[2025-07-21] MEDS: TRANEXAMIC ACID 1,000 MG IVPB 1,000 MG/100 ML BAG 200 MG IV (22:32)
[2025-07-21 22:36] VITALS: BP 146/89; PULSE 90; RESP 17; TEMP 36.7; O2SAT 97
[2025-07-22 00:12] LABS: Bilirubin,Urine Negative (Negative); Blood,Urine Negative (Negative); Clarity,Urine Clear (Clear/Hazy); Collection Type, Urine Clean Catch; Color,Urine Lt-Yellow (Lt Yel-Yel); Culture Indicated,Urine Not Indicated; Glucose, Urine Negative (Negative); Ketones,Urine Negative (Negative); Leukocyte Esterase,Urine Negative (Negative); Nitrite,Urine Negative (Negative); PH,Urine 6.5 (5.0-7.0); Protein,Urine Negative (Neg - Trace); RBC,Urine 3 /hpf (0-3); Specific Gravity,Urine 1.033 (1.001-1.035); Squamous Epithelial Cell,Urine 0 /hpf (0-5); Urobilinogen,Urine Negative mg/dL (0.0-1.0); WBC,Urine 1 /hpf (0-5)
[2025-07-22] MEDS: cefTRIAXone/D5w 1gm IV premix 1 GM/50 ML BAG IV (00:39)
[2025-07-22] MEDS: AZITHROMYCIN INJ 500 MG in SODIUM CHLORIDE 0.9% 250 ML 250 ML 250 MG IV (00:43)
--- NOTE | 2025-07-22 00:46 | EDNOTE_ITS ---
Emergency Room Addendum Addendum Narrative: I took over the care from Asia Goldstein NP at _11PM_ on _07/21/25_. See previous notes for complete H & P and ED course. I reviewed all diagnostic test results. Diagnoses include: Pneumonia hemoptysis Treatment here from Asia Goldstein NP included: Epinephrine neb treatment TXA 1 gram IV Treatment here FROM ME included: IVF DuoNeb Solumedrol 125 mg IV MgSO4 2 gram IV Zithromax 500 mg IV Rocephin 1 gram IV Oral KCl 40 meq Significant improvement noted. I discussed the case with [facility]. About the presentation and exam and diagnostics and treatments here. And need of further care there. Recommended no treatment here. I discussed the case with our hospitalist. About the presentation and exam and diagnostics and treatments here. And need of further care in the hospital. Recommended outpatient treatment. Based on my best medical judgment, made decision no further evaluation or treatment indicated at this time. Patient understands and agrees to the discharge instructions customized and printed, see below. Discharge instructions from Dr. Gallardo: -- After extensive evaluation, there is no life-threatening condition.? Such as heart attack or pulmonary embolism (blood clots in your lungs) or pneumothorax (collapsed lung). -- We discussed your case with [facility]. After reviewing your case and diagnostic tests, they made decision transfer was not necessary. -- You were evaluated by our hospitalist team. They made decision admission was not necessary. And that we can treat your pneumonia at home. -- No physical exertion for 3 days to help rest the lungs. -- No smoking or exposure to smoking or pets or dust or cold or humidity. -- Zithromax and cefdinir to kill the germs causing the pneumonia. -- Prednisone to help decrease the swelling in the airways. -- Albuterol 2 puffs every 4-6 hours for 3 days to help keep the airways open. Then as needed for cough or shortness of breath. -- See a private doctor next week on 07/23/2025 for recheck. Ask for help until you are completely better. Ask to review all test results and official radiology reports, to make sure you receive all necessary follow-ups and monitoring. -- Seek immediate medical care with worsening or with any concerns. Brody Gallardo MD
[2025-07-22 01:12] LABS: Hematocrit 30.6 % (41.0-53.0); Hemoglobin 9.6 g/dL (13.5-16.0)
[2025-07-22 01:38] VITALS: BP 150/92; PULSE 81; RESP 20; TEMP 37.1; O2SAT 93
[2025-07-22 02:01] LABS: Procalcitonin < 0.04 ng/ml (0.0-0.49)
[2025-07-22] MEDS: ALBUTEROL/IPRATROPIUM (Duoneb) RT SOL 3 ML NEBU INH (02:18)
[2025-07-22 02:20] VITALS: PULSE 77; RESP 30; O2SAT 97
[2025-07-22 02:22] LABS: D-Dimer 2780 ng/mL (<600)
[2025-07-22] MEDS: MethylPREDNISolone SOD SUCC 62.5 MG/ML 2ML VIAL 125 MG IVP (02:27)
[2025-07-22] MEDS: POTASSIUM CHLORIDE 10% 20 MEQ/15 ML UDC 40 MEQ PO (02:28)
[2025-07-22] MEDS: RINGERS LACTATED 1000 ML 1,000 ML IV (02:28)
[2025-07-22 02:30] LABS: Magnesium 1.5 mg/dL (1.6-2.6); Thyroid Stimulating Hormone 28.08 uIU/mL (0.55-4.78)
[2025-07-22] MEDS: Magnesium Sulfate 2 GM Ivpb 2 GM/50 ML BAG IV (03:09)
[2025-07-22 03:33] LABS: Free T3 2.0 pg/mL (2.3-4.2); Free T4 (Free Thyroxine) 0.79 ng/dL (0.89-1.76)
[2025-07-22 04:56] VITALS: BP 133/72; PULSE 62; RESP 20; O2SAT 95
--- NOTE | 2025-07-22 06:02 | ESCONSULT_ITS ---
<Statement entered by Reynaldo Meza MD - 07/23/25 06:18> 69-year-old male with significant past medical history of COPD uses rescue inhaler and not on any oxygen, chronic smoker stopped 15 years ago and smoked for 15 years, hypothyroidism, hypertension, recent aortic aneurysm repair done on 05/24/2025 and [facility] Brigid presented to the hospital with chief complaints of coughing up blood since 2 days. Reported that in total he coughed up around 30 mL of blood. Denies fever, chills, any recent sick contacts. Vitals are stable at the time of admission except for mildly elevated blood pressure. Labs at the time of admission are significant for potassium 3.3, magnesium 1.5, TSH 28, free T40.79, free T3 2. 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 Patient's hemoptysis could be likely from the pneumonia but in the view of ulcerations noted on the CTA, recommended ED doctor to follow-up with [facility] Brigid for further evaluation. If there is no further intervention from [facility], patient can continue his dual antiplatelets, needs antibiotics for the pneumonia and needs to follow-up with the primary care provider as soon as possible. Explained about all this information to the patient and he understood. I have personally seen and examined the patient, agree with residents assessment and plan Patient plan of care was discussed with the attending physician, Dr. Pili Meza, PGY2 HPI Data of Consult Requesting Physician: Dr. Brody Gallardo Admitting Provider: Dr. Pauly Alejandre MD Attending Provider: Dr. Pauly Alejandre MD Primary Care Provider: Physician No Primary/Family Consult Narrative History of present illness: HPI: Dheeraj Bowman is a 69M male with a PMH significant for recent AAA repair (05/24/25) with stents on aspirin and Plavix, COPD, hypothyroidism and hypertension who presented to the ED in the evening of 07/21/2025 with chief complaint of hemoptysis that started at 4 PM the day of presentation. He also mentions associated shortness of breath improved by coughing and clearing his lungs. He denied chest pain pain. He was found to have pneumonia in the right middle lobe and right base on chest CTA. He was also found to have ulcerations in the wall of the descending thoracic aorta above his stent status post AAA repair. The hospitalist team was consulted. ED Course: * Patient received inhaled epinephrine, tranexamic acid 1 g, 1 g ceftriaxone, 5 mg azithromycin, a DuoNeb treatment, 10 mg IV push of labetalol, 125 mg IV push of methylprednisolone, 40 mill EQ of potassium, 1 L of LR, and 4 GM magnesium * Vitals were significant for BP 176/99, pulse 117, satting at 94% on room air * Patient has been asymptomatic for past few hours and sits comfortably in bed. * Significant labs included a potassium of 3.3, chloride 108, glucose 130, magnesium 1.5, TSH 28, free T4 0.79, free T3 2.0 * Chest CTA showed pneumonia in the right middle lobe and right base, aneurysmal dilation of the descending thoracic aorta and abdominal aorta with thoracic aorta endoluminal iliac stent, Ulcerations in the wall of the descending thoracic aorta above the stent History: * Past medical history: As above in HPI * Surgical history: AAA repair, stents * Social history: Quit smoking in 2010, [id number] history before. Stopped drinking the same year. Denies illicit drug use. Home medications: * See med list Allergies: * No known drug allergies cc:: cc: Review of Systems Review of Systems Narrative Review of Systems: Review of Systems: * General: Denies fevers, chills. * HEENT: Denies headache, congestion, or sore throat. * Cardiac: Denies chest pain or palpitations. * Pulmonary: Hemoptysis of few hours duration, pink productive sputum. Associated shortness of breath relieved by coughing. * GI: Denies nausea, vomiting, diarrhea, constipation, melena, or hematochezia. * : Denies dysuria, hematuria, frequency, or urgency. * MSK: Denies pain in the extremities, joints, or myalgias. * Neuro: Denies weakness, numbness, vision changes, or speech difficulty. Exam Vital Signs Temp Pulse Resp BP Pulse Ox O2 Del Method 98.7 F 62 20 133/72 H 95 Room Air 07/22/25 01:38 07/22/25 04:56 07/22/25 04:56 07/22/25 04:56 07/22/25 04:56 07/21/25 22:36 Narrative Exam General: Awake and in no acute distress. Conversational and non-toxic appearing. Neurologic: GCS 15. Alert and oriented x3, no gross neurological deficit, and patient able to move all 4 extremities. HEENT: Normocephalic, atraumatic, mucous membranes moist. Pupils reactive to light. Heart: Regular rate and rhythm, normal S1 and S2, no murmurs. Lungs: Crackles in the bases bilaterally, no signs of bleeding at exam time. Abdomen: Soft, nondistended, nontender, positive bowel sounds. No guarding or rebound tenderness. Extremities: No edema. 2+ radial and dorsalis pedis pulses bilaterally. Skin: Warm. Dry. No rash or ecchymoses. Results Labs 07/22/25 01:00 07/21/25 21:53 Labs: Short CBC 07/21/25 07/22/25 Range/Units 21:53 01:00 WBC 7.9 (3.8-10.6) Thou/mm3 Hgb 10.5 L 9.6 L (13.5-16.0) g/dL Hct 33.6 L 30.6 L (41.0-53.0) % Plt Count 270 D (140-440) Thou/mm3 BMP 07/21/25 21:53 Sodium 143 Potassium 3.3 L Chloride 108 H Carbon Dioxide 24.8 BUN 12 Creatinine 1.1 Glucose 130 H Calcium 9.2 Cardiac Enzymes 07/21/25 Range/Units 21:53 Troponin I < 0.020 (0.0-0.045) ng/mL Liver Function 07/21/25 Range/Units 21:53 Total Bilirubin 0.2 L (0.3-1.2) mg/dL AST 13 (0-34) U/L ALT < 7 L (10-49) U/L Alkaline Phosphatase 94 (46-116) U/L Albumin 4.4 (3.4-4.8) gm/dL Urine 07/22/25 Range/Units 00:00 Urine Color Lt-Yellow (Lt Yel-Yel) Urine Clarity Clear (Clear/Hazy) Urine pH 6.5 (5.0-7.0) Ur Specific [place] 1.033 (1.001-1.035) Urine Protein Negative (Neg - Trace) Urine Glucose (UA) Negative (Negative) Quality Measures Quality Measures none Advance care planning discussed with:: patient Medications Home Medications and Allergies Home Medications ?Medication ?Instructions ?Recorded ?Confirmed ?Type acetaminophen 500 mg tablet 500 mg PO Q8HR PRN pain 06/06/25 History albuterol sulfate 90 mcg/actuation 2 puff inhalation Q 6H PRN 06/06/25 06/06/25 History aerosol inhaler shortness of breath or wheez ing aspirin 81 mg chewable tablet 1 tab PO QDAY 06/06/25 1 History Held on 06/08/25. Instructions: Resume on 06/22/25. levothyroxine 75 mcg tablet 75 mcg PO QDAY 06/06/25 History (Synthroid) losartan 100 mg tablet 100 mg PO QDAY 06/06/2505/10 History Held on 06/08/25. Instructions: Resume on 06/15/25. rosuvastatin 20 mg tablet 20 mg PO QDAY 06/06/2506/06 History Allergies Allergy/AdvReac Type Severity Reaction Status Date / Time No Known Allergies Allergy Verified 07/21/25 21:25 Visit Medications Discontinued Medications Albuterol/Ipratropium (Albuterol/Ipratropium (Duoneb) Rt Linda 3 Ml Nebu) 3 ml INH X1 ONE Stop: 07/22/25 01:57 Last Admin: 07/22/25 02:18 Dose: 3 ml Epinephrine (Epinephrine Rt Linda 0.5 Ml Nebu) 0.5 ml INH X1 ONE Stop: 07/21/25 22:14 Last Admin: 07/21/25 22:23 Dose: 0.5 ml Tranexamic Acid (Tranexamic Acid Ivpb) 1,000 mg in 100 mls @ 200 mls/hr IV X1 ONE Stop: 07/21/25 22:06 Last Infusion: 07/21/25 23:03 Dose: Infused Azithromycin 500 mg/ Sodium (Chloride) 250 mls @ 250 mls/hr IV X1 ONE Stop: 07/22/25 01:14 Last Infusion: 07/22/25 02:31 Dose: Infused Ceftriaxone Sodium/Dextrose (Rocephin/D5w 1gm Iv Premix) 1 gm in 50 mls @ 100 mls/hr IV X1 ONE Stop: 07/22/25 00:44 Last Infusion: 07/22/25 01:23 Dose: Infused Lactated Ringer's (Lactated Ringers) 1,000 mls @ 1,000 mls/hr IV .Q1H ONE Stop: 07/22/25 02:56 Last Infusion: 07/22/25 03:30 Dose: Infused Magnesium Sulfate (Magnesium Sulfate Ivpb) 2 gm in 50 mls @ 25 mls/hr IV X1 ONE Stop: 07/22/25 04:38 Last Admin: 07/22/25 03:12 Dose: Not Given Magnesium Sulfate (Magnesium Sulfate Ivpb) 2 gm in 50 mls @ 50 mls/hr IV X1 ONE Stop: 07/22/25 03:38 Last Infusion: 07/22/25 04:49 Dose: Infused Labetalol HCl (Labetalol Inj 5 Mg/Ml Vial 4 Ml) 10 mg IVP Q30M PRN PRN Reason: SBP>120 Stop: 08/21/25 01:50 Last Admin: 07/22/25 02:27 Dose: 10 mg Methylprednisolone Sodium Succinate (Methylprednisolone Sod Succ 62.5 Mg/Ml 2ml Vial) 125 mg IVP X1 ONE Stop: 07/22/25 01:57 Last Admin: 07/22/25 02:27 Dose: 125 mg Potassium Chloride (Potassium Chloride 10% 20 Meq/15 Ml Udc) 40 meq PO X1 ONE Stop: 07/22/25 01:27 Last Admin: 07/22/25 02:28 Dose: 40 meq Sodium Chloride (Sodium Chloride Rt 10% 15 Ml Nebu) 5 ml INH X1 ONE Stop: 07/21/25 21:46 Last Admin: 07/21/25 22:22 Dose: Not Given Sodium Chloride (Sodium Chloride Rt Linda 0.9% 3 Ml Nebu) 3 ml INH PRN PRN PRN Reason: SOLN Stop: 08/20/25 22:12 Last Admin: 07/21/25 22:23 Dose: 3 ml Assessment & Plan Plan Summary: Dheeraj Bowman is a 69M male with a PMH significant for recent AAA repair (05/24/25) with stents on aspirin and Plavix, COPD, hypothyroidism and hypertension who presented to the ED in the evening of 07/21/2025 with chief complaint of hemoptysis that started at 4 PM the day of presentation. He also mentions associated shortness of breath improved by coughing and clearing his lungs. He denied chest pain pain. He was found to have pneumonia in the right middle lobe and right base on chest CTA. The hospitalist team was consulted. The patient's hemoptysis was likely secondary to his pneumonia, and the patient was afebrile and had no white count. Vascular surgery at [facility] where he had stent placement were contacted for evaluation of CTA findings of the Aorta and possible need of transfer but we where told that there is not need and patient can follow up outpatient for that. As there is no concern from vascular surgery stand point that bleeding is vascular, it's likely 2/2 cough and pneumonia, patient is stable and does n't require admission at this time, he can be discharged home on PO antibiotics and pcp follow up as needed. Patient informed to return to ED if symptoms don't resolve or worsen. #Community-acquired pneumonia #Penetrating atherosclerotic ulceration #Hemoptysis #AAA status post repair #Hypertension * Patient presented with a several hour history of hemoptysis, blood-tinged sputum * Consider that the patient is on aspirin and Plavix for his AAA repair * No leukocytosis, vitals are stable, afebrile * Chest CTA showed aneurysmal dilation of the descending thoracic aorta and abdominal aorta with thoracic aorta endoluminal iliac stent, Ulcerations in the wall of the descending thoracic aorta above the stent * Patient presented with a BP of 176/99, takes known medications for hypertension * Patient's hemoptysis is likely secondary to his cough/pneumonia that will be treated outpatient with appropriate antibiotics by ED team Plan: * Antibiotics per ED team Zithromax and cefdinir * Follow-up with PCP outpatient * Return to ED if symptoms recurs or worsen. Patient was seen and discussed with my attending physician Dr. Pili PARRA and my senior resident Dr. Susana PARRA PGY-1. Tone Miranda DO PGY-1. Attending Provider Attestation/Addendum Plan of care discussed with patient and is in agreement. I Pauly Alejandre MD, attest that I was physically present for mcnair portions of evaluation, and examined patient, labs and imagings and plan of care were discussed with IM residents team, and I agree with the findings and plans documented above.
== END 2025-07-22 04:57 | disposition home or self-care (01) ==
PROVIDERS: Nurse Practitioner Family; Student in an Organized Health Care Education/Training Program; Emergency Provider Emergency Medicine
DX: J44.0 Chronic obstructive pulmonary disease with (acute) lower respiratory infection (principal); J18.9 Pneumonia, unspecified organism; R91.8 Other nonspecific abnormal finding of lung field; R04.2 Hemoptysis; R00.0 Tachycardia, unspecified; Z87.891 Personal history of nicotine dependence; I10 Essential (primary) hypertension; E78.5 Hyperlipidemia, unspecified
CPT/HCPCS: 36415; 71045; 71275; 80053; 81001; 83735; 83880; 84145; 84439; 84443; 84481; 84484; 85014; 85018; 85025; 85379; 85610; 85730; 86850; 86900; 86901; 87205; 87502; 87635; 93005; 94640; 96361; 96365; 96366; 96375; 99285; A4649; A9270; J0456; J0696; J1920; J2919; J3475; J3490; J7050; J7120; Q9967